=== PATIENT | male | born 1945 | race Caucasian/White ===

== ENCOUNTER → 2019-12-12 09:47 | Outpatient (BNVA) | payer MEDICARE, SELFPAY | PROVIDERS: Family Provider Family Medicine; PCP Family Medicine; Visit Provider Anesthesiology | DX: G89.29 Other chronic pain (principal); M54.41 Lumbago with sciatica, right side; M54.42 Lumbago with sciatica, left side; M54.9 Dorsalgia, unspecified; F17.220 Nicotine dependence, chewing tobacco, uncomplicated; Z79.891 Long term (current) use of opiate analgesic; Z71.6 Tobacco abuse counseling | CPT/HCPCS: 99213; 99214 ==

== ENCOUNTER 2019-12-29 10:25 | Outpatient (CLI) | payer MEDICARE, SELFPAY ==
--- NOTE | 2019-12-29 10:34 | XRR_ITS ---
PROCEDURE INFORMATION: Exam: XR Lumbosacral Spine, 2 or 3 Views Exam date and time: 12/29/2019 11:14 AM Age: 74 years old Clinical indication: Patient HX: C/O low back pain with radiculopathy; No known trauma; Additional info: Lumbar back pain w/radiculopathy TECHNIQUE: Imaging protocol: XR of the lumbosacral spine, 2 or 3 views. COMPARISON: CR Lumbar Spine 2-3 views* [id number] 05/19/2018 12:02 PM FINDINGS: Vertebrae: Degenerative change. Mild retrolisthesis of L1 on L2 and L2 on L3. No acute bony injury. Vasculature: Vascular calcification. Soft tissues: Unremarkable as visualized. When correlating with the previous study, no significant interval changes are present. XR/XR lumbar spine 2-3V* [id number] IMPRESSION: Degenerative change.
--- NOTE | 2019-12-29 10:34 | XRR_ITS ---
PROCEDURE INFORMATION: Exam: XR Chest, 2 Views Exam date and time: 12/29/2019 11:14 AM Age: 74 years old Clinical indication: Patient HX: C/O cough and low back pain TECHNIQUE: Imaging protocol: XR of the chest Views: 2 views. COMPARISON: No relevant prior studies available. FINDINGS: Lungs: Emphysematous change and mild interstitial prominence. No acute infiltrate. Pleural space: No pleural effusion. Heart/Mediastinum: Cardiac silhouette upper limits of normal in size. Vasculature: Ectasia of the thoracic aorta. Bones/joints: Degenerative change. XR/XR chest 2V* [id number] IMPRESSION: Emphysematous change and mild interstitial prominence.
== END 2019-12-29 10:26 | disposition home or self-care (01) ==
LOC: RAD 10:30
PROVIDERS: PCP Family Medicine; Visit Provider Family Medicine
DX: R05 Cough (principal); M54.16 Radiculopathy, lumbar region; J43.9 Emphysema, unspecified
CPT/HCPCS: 71046; 72100

== ENCOUNTER 2020-01-09 08:22 | Day surgery (SDC) | payer MEDICARE, SELFPAY ==
[2020-01-04 13:43] VITALS: BMI 31.4
[2020-01-09 09:21] VITALS: BP 136/90; PULSE 69; RESP 18; TEMP 37.1; O2SAT 97
[2020-01-09] MEDS: sodium chloride 0.9% 1,000 ML 30 ML IV (09:29)
--- NOTE | 2020-01-09 09:34 | P.ANESASSM_ITS ---
Pre-Anesthetic Assessment Pre-Anesthetic Assessment: Height/Weight: Height 1.8 m Weight 102.058 kg Temp Pulse Resp BP Pulse Ox 98.7 F 69 18 136/90 97 01/09/20 09:21 01/09/20 09:21 01/09/20 09:21 01/09/20 09:21 01/09/20 09:21 Preop Diagnosis: screening Proposed Procedure: Operation Date: 01/09/20 10:00 Proposed Procedures p Colonoscopy w poss polypectomy 34960 Z86.010(Not Applicable) - Germain Mendoza MD Familial anesthetic complications: none Was Beta Maria Luz taken within 24 ho urs: N/A Last intake: Intake Last Liquid Date 01/08/20 Last Liquid Time 19:00 Last Solid Date 01/07/20 Last Solid Time 19:00 Social: Social History: No alcohol and No tobacco Exam: Pre-Anes Outpt Exam: alert, oriented x 3, clear to auscultation bilaterally and regular rate & rhythm Airway: Cervical ROM: WNL MP: 3 Dentition: Partials Pulmonary: Pulmonary: None reported CV/HEM: CV/HEM: HTN : : None reported Hepatic: Hepatic: None reported GI: GI: None reported Metabolic: Metabolic: None reported Musc/skel: Musc/skel: Lower Back Pain Neuropsych: Neuropsych: None reported Anesthetic Plan: ASA status: 2 Anesthesia: MAC Risk of > 500 ml blood loss (7ml/kg in children): No Meds/Allergies Current Medications: Current Medications Generic Name Dose Route Start Last Admin Trade Name Freq PRN Reason Stop Dose Admin Sodium Chloride 1,000 mls @ 30 ml s/hr 01/09/20 09:00 01/09/20 09:29 Sodium Chloride 0.9% IV 01/10/20 08:59 30 mls/hr .Q24H KRISTEL Administration PFSH Anesthesia PFSH: Medical History (Updated 01/03/20 @ 12:33 by Mira Do RN) Chronic midline low back pain with bilateral sciatica Gout History of colon polyps HTN (hypertension), benign Surgical History H/O hemorrhoidectomy H/O prostate biopsy History of appendectomy History of colonoscopy with polypectomy (~2012) History of umbilical hernia repair Family History Other Diabetes Denies family history of Anesthesia complication Bleeding disorder Social History (Updated 01/04/20 @ 13:40 by Cassy Espino RN) Smoking and tobacco status: former smoker Alcohol intake: current Alcohol type: beer Data Anesthesia Cardiac Studies: No Data to Display
--- NOTE | 2020-01-09 10:35 | W.PM.OPSUD ---
Surgery/Procedure H&P Update DATE OF PROCEDURE: January 09, 2020 DATE H&P PERFORMED: 12/26/19 H&P UPDATE INFORMATION: I have reviewed H&P completed within last 30 days, I have examined patient prior to procedure and No changes to prior documentation PREOP DIAGNOSIS: screening PLANNED PROCEDURE: Operation Date: 01/09/20 10:00 Proposed Procedures p Colonoscopy w poss polypectomy 07356 Z86.010(Not Applicable) - Germain Mendoza MD
[2020-01-09 10:58] VITALS: BP 124/83; PULSE 57; RESP 12; TEMP 36.3
[2020-01-09 11:11] VITALS: BP 133/92; PULSE 68; RESP 18; O2SAT 95
== END 2020-01-09 11:21 | disposition home or self-care (01) ==
PROVIDERS: PCP Family Medicine; Visit Provider Surgery
PROC: 0DJD8ZZ Inspection of Lower Intestinal Tract, Via Natural or Artificial Opening Endoscopic (ICD-10-PCS; CPT 45378; principal; 2020-01-09 10:00)
DX: Z12.11 Encounter for screening for malignant neoplasm of colon (principal); Z86.010 Personal history of colon polyps; D12.0 Benign neoplasm of cecum; K57.30 Diverticulosis of large intestine without perforation or abscess without bleeding; K64.8 Other hemorrhoids; I10 Essential (primary) hypertension; Z87.891 Personal history of nicotine dependence; Z79.82 Long term (current) use of aspirin
CPT/HCPCS: 12345; 45380; 88305; J0171; J2704; J7030

== ENCOUNTER 2020-01-10 14:06 | Outpatient (CLI) | payer MEDICARE, SELFPAY ==
[2020-01-10 17:02] LABS: Basophils # 0.1 10^3/uL (0.0-0.1); Basophils % 0.7 %; Eosinophils # 0.3 10^3/uL (0.0-0.8); Eosinophils % 4.3 %; Hematocrit 42.9 % (42.0-52.0); Hemoglobin 14.3 g/dL (11.7-16.6); Lymphocytes # 2.6 10^3/uL (0.8-4.8); Lymphocytes % 37.4 %; Mean Corpuscular HGB Conc 33.3 g/dL (30.0-36.0); Mean Corpuscular Hemoglobin 30.7 pg (28.0-34.0); Mean Corpuscular Volume 92.1 fL (80-94); Monocytes # 0.5 10^3/uL (0.2-0.9); Monocytes % 7.7 %; Neutrophils # 3.46 10^3/uL (1.8-7.7); Neutrophils % 49.6 %; Nucleated Red Blood Cells % 0 %; Platelet Count 54 10^3/cmm (130-400); Red Blood Count 4.66 10^6/uL (4.1-5.3); Red Cell Distribution Width 13.7 % (12.1-15.1)
[2020-01-10 17:11] LABS: LAB Peripheral Smear Sent for Review
[2020-01-10 17:16] LABS: Alanine Aminotransferase 17 U/L (0-41); Albumin Level 4.4 g/dL (3.5-5.2); Alkaline Phosphatase 70 IU/L (40-130); Anion Gap 14.8 (5-19); Aspartate Amino Transferase 20 U/L (0-40); Blood Urea Nitrogen 13 mg/dL (8-23); Calcium 9.7 mg/dL (8.5-10.5); Carbon Dioxide 26 mmol/L (22-29); Chloride 103 mmol/L (98-107); Globulin 2.6 g/dL (1.3-4.6); Glucose 92 mg/dL (65-115); Lactate Dehydrogenase 183 U/L (135-225); Osmolality Calculated 286 mOsm/kg (285-295); Potassium 3.8 mmol/L (3.5-5.1); Sodium 140 mmol/L (136-145); Total Bilirubin 0.5 mg/dL (0.15-1.2)
[2020-01-10 17:54] LABS: Erythrocyte Sedimentation Rate 11 mm/hr (0-10)
[2020-01-10 18:21] LABS: Vitamin B12 588 pg/mL (232-1245)
--- NOTE | 2020-01-10 19:36 | ONC CON_ITS ---
Dr. Chand New Patient Note Patient: Tl Crandall Unit #: [id number]: 1945 Dicatated By: Velasquez Chand M.D.Date of Visit: Jan 10, 2020 Onc MED New Patient/Consult Referring Physician: Dr. KRISSY BLEDSOE M.D. Chief Complaint: Thrombocytopenia. History of Present Illness: This is a 74 year-old man with moderately severe thrombocytopenia. This patient has hypertension, benign prostatic hypertrophy, degenerative arthritis, and gout. He also has been followed for an elevated PSA level. He has been in good general health. He had been seen by Dr. Bledsoe for a scheduled follow-up visit on 12/28/2019. At that time he reported having easy bruising. His lab studies from 2 weeks earlier included a CBC which showed a low platelet count at 50,000. The hemoglobin at that time was normal at 14.9 g with hematocrit 44.8%. The red cell indices were normal. The white blood cell count was 6700 with the differential showing 46% neutrophils, 35% lymphocytes, 9% monocytes, and 7% eosinophils. His repeat CBC on 12/28/2019 showed similar hemoglobin at 14.9 g with white blood cell count 7300 and further decrease in the platelet count to 39,000. Comprehensive metabolic profile was unremarkable. Renal function was normal with BUN 20 and creatinine 1.15 mg/dL, and the liver enzymes were normal. Sed rate and CRP levels were normal. His PSA level was 8.0 ng/mL, similar to previous studies. He says he has been feeling fine. He has good energy. He has normal activity. He exercises daily. ECOG score is 0. He has good appetite. His weight is down about 5 pounds. He does not have fever or night sweats. His says that he always feels cold. He has noticed that he has been bruising more easily, and that has been going on for perhaps 6 months or so. He has had no other bleeding manifestations. He has a little bit of cough. He has no shortness of breath or chest pain. She has no GI complaints. He had a colonoscopy yesterday. He had no complications with that procedure. Bladder function has been OK with tamsulosin. He sees Dr. Lopez for the elevated PSA. He has chronic back pain. The pain sometimes radiates into his right leg. He has no focal neurologic symptoms. Past Medical History: His medical history includes benign prostatic hypertrophy, degenerative arthritis, degenerative disease of the spine, elevated PSA level, gout, history of colonic polyps, and hypertension. Past Surgical History: His surgical/procedural history includes appendectomy, excision of ganglion cyst, prostate biopsy x 2, right inguinal hernia repair, umbilical hernia repair, and colonoscopy in 2019. Medications: Adult Aspirin EC Low Strength 1 (81 mg) Tablet, enteric coated Oral daily, Allopurinol 1 Tablet (of 300 mg) Oral daily, amLODIPine Besylate 1 Tablet (of 5 mg) Oral daily, hydroCHLOROthiazide 1 Tablet (of 12.5 mg) Oral daily, Tamsulosin HCl 1 Tablet (of 0.4 mg) Capsule Oral b.i.d., traMADol HCl 1 Tablet (of 50 mg) Oral q 6 hours PRN Allergies: No Known Allergies. Social History: Mr. Crandall is and he is retired. He has a history of smoking for approximately 15 years, but not more than 2 packs per week. He quit smoking at age 33. He chews 2 cans of tobacco per month. His alcohol use averages a 6-pack of beer per week. Family History: Father at age 59 of alcohol related liver cirrhosis. Mother had diabetes and at age 90. All of his sibblings have diabetes. A son of Becerril's sarcoma at age 16. Review Of Symptoms: Constitutional - He is feeling good and his energy is good. He has normal activity. He swims daily for exercise. His appetite is good and he reports a recent weight loss of 5 pounds. No fever, night sweats, or hot flashes. His says that he always feels cold. ECOG score is 0, Eyes - No change in vision, ENMT - No hearing loss or tinnitus. No sinus congestion/drainage. No mouth sores. No sore throat or difficulty swallowing, Hematologic/Lymphatic - He has been bruising more easily. He has had no other bleeding, Respiratory - No shortness of breath. He has a slight cough. No pleuritic pain or hemoptysis, Cardiovascular - No angina pain. No palpitations, Gastrointestinal - No nausea or vomiting. No heartburn or acid reflux. No diarrhea or constipation. No blood in the stool or black stools. He had a colonoscopy performed yesterday, and he reports that he had some polyps resolved, Genitourinary (M) - He has been taking tamsulosin for BPH symptoms, and he has seen Dr. Lopez for an elevated PSA level. No dysuria or hematuria. No urinary frequency. No urgency or incontinence, Musculoskeletal - He has chronic back pain. This has been present for several years. It sometimes radiates into his right leg, Integumentary - No skin rash, Neurologic - No headache or dizziness. No numbness or tingling. No other focal neurologic symptoms, Psychiatric - No anxiety or depression. He does not sleep well. Vital Signs: Performed on Jan 10, 2020 15:20: 4, 33.50 (HIGH), 2.23 sq.m, 70 in, 97 %, 57 /min (LOW), 16 /min, 135/88 mm(hg), 98.0 F (LOW), and 233.5 lbs (HIGH). Physical Examination: Constitutional - He appears to be in good general health, Eyes - Sclerae nonicteric. Conjunctivae clear, ENMT - No lesions noted in the oral cavity, Neck - No mass or thyromegaly, Hematologic/Lymphatic - No cervical, clavicular, or axillary adenopathy, Respiratory - Lungs are clear with good air movement bilaterally, Cardiovascular - Heart rhythm is regular. There is a I/ systolic murmur. There is no gallop or rub noted, Abdomen - Soft and non-tender. Liver and spleen are not enlarged. There is no abdominal mass or ascites noted and there is no inguinal adenopathy, Back/Spine - No spine or CVA tenderness noted, Extremities - Slight edema. Pedal pulses are palpable bilaterally. There are ecchymoses at recent venipuncture sites. There are no petechiae noted, Integumentary - No rashes. No suspicious skin lesions noted, Neurologic - No focal neurologic deficits noted. Impression: 1. Patient with moderately severe thrombocytopenia. Etiology is uncertain. It could be medication related, though not likely. The more likely possibilities would be autoimmune thrombocytopenia or myelodyspastic syndrome. 2. He has a mild bleeding tendency. It is likely due in part to the aspirin therapy. His other medical illnesses include: 3. Hypertension. 4. Benign prostatic hypertrophy. 5. Degenerative arthritis/degenerative disease of the spine. 6. Gout. 7. He has been followed for elevated PSA level. 8. He has a history of colonic polyps. Plan: The laboratory findings and clinical implications were reviewed with the patient and his . He has moderately severe thrombocytopenia. He has a mild bleeding tendency with it, but at least some component of that is likely to be related to his aspirin therapy. The cause is uncertain. It is possible, though not likely to be medication related. As noted, the more likely possibilities would be autoimmune thrombocytopenia or myelodysplastic syndrome. At least for now he will stop the aspirin. As a precaution I think he should also stop the hydrochlorothiazide. He will addtional laboratory studies today to include CBC, CMP, LDH level, B12 level, sed rate and CRP level, and MICHEAL screen. I will review the blood smear. He will have further evaluation as indicated. I anticipate that he will need to undergo bone marrow aspiration and biopsy. Signed By: Velasquez Chand M.D. <<Signature on File>>
[2020-01-12 13:29] LABS: Anti-Nuclear Antibody Screen NEGATIVE (NEGATIVE)
== END 2020-01-10 14:07 | disposition home or self-care (01) ==
LOC: ONCMED 14:11
PROVIDERS: PCP Family Medicine; Visit Provider Internal Medicine Medical Oncology
DX: D69.6 Thrombocytopenia, unspecified (principal); M25.50 Pain in unspecified joint; D68.9 Coagulation defect, unspecified; I10 Essential (primary) hypertension; N40.0 Benign prostatic hyperplasia without lower urinary tract symptoms; M19.90 Unspecified osteoarthritis, unspecified site; M47.9 Spondylosis, unspecified; M10.9 Gout, unspecified; R97.20 Elevated prostate specific antigen [PSA]; Z79.82 Long term (current) use of aspirin; Z86.010 Personal history of colon polyps
CPT/HCPCS: 36415; 80053; 82607; 83615; 85025; 85651; 86038; 99205

== ENCOUNTER 2020-01-16 07:46 | Outpatient (CLI) | payer MEDICARE, SELFPAY ==
--- NOTE | 2020-01-16 07:58 | MR_ITS ---
WS: [id number] MRI LUMBAR SPINE NONCONTRAST TECHNIQUE: Sagittal T1, T2 and STIR imaging. Axial T1 and T2 imaging. CLINICAL INFORMATION: BACK PAIN, LUMBAR, WITH RADICULOPATHY COMPARISON: None. FINDINGS: Mild lumbar curve. No acute compression. No high-grade central canal stenosis. L1-L2: Small right foraminal protrusion with mild right foraminal narrowing. Spinal canal and foramen are patent. Mild facet arthropathy. L2-L3: Mild annular bulging with slight narrowing of the right greater than left subarticular recess. Mild right and no significant left foraminal narrowing. Mild to moderate facet arthropathy. L3-L4: Mild annular bulging. Mild facet arthropathy. Small right foraminal protrusion with mild right foraminal narrowing. L4-L5: Mild annular bulge with impingement on the right subarticular recess and traversing right L5 n erve root. Mild to moderate right and no significant left foraminal narrowing. Moderate facet arthrop athy. L5-S1: Mild disc bulging with slight effacement of ventral thecal sac. Shallow central protrusion. Ti ny annular fissure. Mild right and no significant left foraminal narrowing. Moderate facet arthropath y. Visualized pelvic bony structures: Normal. Paravertebral soft tissues: Normal. MR/MR lumbar spine wo con* [id number] IMPRESSION: 1. Mild lumbar curve. No acute compression. No high-grade central canal stenos is. 2. Mild disc bulging L4-5 with slight impingement on the right greater than le ft subarticular recess and traversing right L5 nerve root. Mild central canal s tenosis at this level. 3. Right foraminal protrusion L4-5 with mild to moderate right foraminal narro wing. 4. Tiny shallow central protrusion L5-S1 with slight effacement of the ventral thecal sac. No significant nerve root impingement. 5. Tiny right foraminal protrusion L3-4 with mild right foraminal narrowing. 6. Mild right L5-S1 foraminal narrowing due to disc bulging with osteophytic r idging. 7. Moderate facet arthropathy L4-L5 and L5-S1.
== END 2020-01-16 07:47 | disposition home or self-care (01) ==
PROVIDERS: Family Provider Family Medicine; PCP Family Medicine; Visit Provider Family Medicine
DX: M54.16 Radiculopathy, lumbar region (principal); M51.26 Other intervertebral disc displacement, lumbar region; M47.817 Spondylosis without myelopathy or radiculopathy, lumbosacral region
CPT/HCPCS: 72148

== ENCOUNTER → 2020-01-25 13:40 | Outpatient (BNVA) | payer MEDICARE, SELFPAY | PROVIDERS: Family Provider Family Medicine; PCP Family Medicine; Visit Provider Urology | DX: R97.20 Elevated prostate specific antigen [PSA] (principal); N40.1 Benign prostatic hyperplasia with lower urinary tract symptoms | CPT/HCPCS: 81001; 84153 ==

== ENCOUNTER 2020-01-26 09:36 | Outpatient (CLI) | payer MEDICARE, SELFPAY ==
[2020-01-26 10:17] LABS: Basophils # 0.1 10^3/uL (0.0-0.1); Basophils % 0.8 %; Eosinophils # 0.2 10^3/uL (0.0-0.8); Eosinophils % 2.9 %; Hemoglobin 14.2 g/dL (11.7-16.6); Lymphocytes # 2.2 10^3/uL (0.8-4.8); Lymphocytes % 35.5 %; Mean Corpuscular Hemoglobin 30.5 pg (28.0-34.0); Mean Corpuscular Volume 92.3 fL (80-94); Monocytes # 0.4 10^3/uL (0.2-0.9); Monocytes % 6.2 %; Neutrophils # 3.33 10^3/uL (1.8-7.7); Neutrophils % 54.4 %; Nucleated Red Blood Cells % 0 %; Platelet Count 58 10^3/cmm (130-400); Red Blood Count 4.66 10^6/uL (4.1-5.3); Red Cell Distribution Width 13.8 % (12.1-15.1); White Blood Count 6.1 10^3/uL (4.0-10.0)
[2020-01-26 11:36] LABS: Slide Review Slide Review Perform
== END 2020-01-26 09:37 | disposition home or self-care (01) ==
LOC: ONCMED 09:41
PROVIDERS: PCP Family Medicine; Visit Provider Internal Medicine Medical Oncology
DX: D69.6 Thrombocytopenia, unspecified (principal)
CPT/HCPCS: 85025

== ENCOUNTER 2020-02-08 09:46 | Day surgery (SDC) | payer MEDICARE, SELFPAY ==
[2020-02-07 08:25] VITALS: BMI 33.0
[2020-02-08 10:27] VITALS: BP 142/98; PULSE 69; RESP 20; TEMP 36.4; O2SAT 97
[2020-02-08] MEDS: sodium chloride 0.9% 1,000 ML 30 ML IV (10:35)
[2020-02-08 10:47] LABS: Hematocrit 46.1 % (42.0-52.0); Hemoglobin 15.2 g/dL (11.7-16.6); Mean Corpuscular Hemoglobin 30.5 pg (28.0-34.0); Mean Corpuscular Volume 92.4 fL (80-94); Mean Platelet Volume 13.7 fL (7.4-10.4); Platelet Count 76 10^3/cmm (130-400); Red Blood Count 4.99 10^6/uL (4.1-5.3); Red Cell Distribution Width 13.5 % (12.1-15.1)
--- NOTE | 2020-02-08 10:57 | ANES.PREANE2 ---
Pre-Anesthetic Assessment Pre-Anesthetic Assessment: Height/Weight: Height 1.78 m Weight 104.326 kg Temp Pulse Resp BP Pulse Ox 97.6 F 69 20 H 142/98 97 02/08/20 10:27 02/08/20 10:27 02/08/20 10:27 02/08/20 10:27 02/08/20 10:27 Preop Diagnosis: screening Proposed Procedure: Operation Date: 02/08/20 11:30 Proposed Procedures p Bone Marrow Biospy With Aspiration(Not Applicable) - Robles Diaz MD Last intake: Intake Last Liquid Date 02/07/20 Last Liquid Time 20:00 Last Solid Date 02/07/20 Last Solid Time 20:00 Social: Social History: Alcohol (occ) and Tobacco (chews) Exam: Pre-Anes Outpt Exam: alert, oriented x 3, clear to auscultation bilaterally and regular rate & rhythm Airway: Submandibular: WNL Cervical ROM: WNL MP: 2 Dentition: Other (poor dentation) History/ROS: No significant history except as noted Pulmonary: Pulmonary: None reported CV/HEM: CV/HEM: HTN : : None reported Hepatic: Hepatic: None reported GI: GI: None reported Metabolic: Comments: Gout Musc/skel: Musc/skel: Lower Back Pain and OA/DJD Neuropsych: Neuropsych: None reported Anesthetic Plan: ASA status: 2 Anesthesia: Anesthesia Evaluation and MAC Risk of > 500 ml blood loss (7ml/kg in children): No Meds/Allergies Current Medications: Current Medications Generic Name Dose Route Start Last Admin Trade Name Freq PRN Reason Stop Dose Admin Sodium Chloride 1,000 mls @ 30 ml s/hr 02/08/20 10:00 02/08/20 10:35 Sodium Chloride 0.9% IV 02/09/20 09:59 30 mls/hr .Q24H KRISTEL Administration PFSH Anesthesia PFSH: Medical History BPH NOS w ur obs/LUTS Chronic midline low back pain with bilateral sciatica Elevated PSA Gout History of colon polyps HTN (hypertension), benign Surgical History H/O hemorrhoidectomy H/O prostate biopsy History of appendectomy History of colonoscopy with polypectomy (01/09/20) History of umbilical hernia repair Family History Mother , at age 89 No problems noted. Father , at age 59 Cirrhosis of liver Other Diabetes Denies family history of Anesthesia complication Bleeding disorder Social History Smoking and tobacco status: former smoker Alcohol intake: current Alcohol type: beer Current occupational status: retired History of recent travel: No Data Anesthesia CBC & Chem 7: 02/08/20 10:35 Cardiac Studies: No Data to Display
[2020-02-08 11:10] LABS: Eosinophils 2 %; Lymphocytes 36 %; Segmented Neutrophils 51 %; Total Cells Counted 100 (0-100)
[2020-02-08 11:12] LABS: Platelet Estimate Decreased (Normal)
[2020-02-08 11:45] VITALS: BP 106/69; PULSE 63; RESP 12; TEMP 36.6; O2SAT 97
--- NOTE | 2020-02-08 11:46 | P.PCN_ITS ---
Bone Marrow Biopsy Bone Marrow Biopsy: I was consulted by [] office regarding bone marrow biopsy on [Tl Crandall]. Briefly, the patient is a 74[] year old male [] with [thrombocytopenia]. In the Outpatient Services Department, with nursing staff and laboratory technologists in attendance, the procedure was discussed with the patient. Appropriate consent form had been signed. Appropriate alternatives, benefits and risks of procedure were discussed with the patient and he was pre- operatively assessed for the biopsy procedure. The patient did request IV sedation and that was provided by the Anesthesia Department. Under aseptic condition right posterior iliac area was cleaned and prepared, local anesthesia was given, about 12 cc of bone marrow aspirate and core biopsy was obtained, patient tolerated procedure well, hemostasis was obtained specimen was sent for routine histo path, flow/cytogenetics, MDS panel. Postprocedure nursing instructions were given Thank you for allowing me to participate in this patient's care and diagnosis. Coding Level of Care Code Acute Meat Wrapper for Aliyah Brock
[2020-02-08 12:00] VITALS: BP 121/83; PULSE 58; RESP 16; TEMP 36.4; O2SAT 98
[2020-02-08 12:20] VITALS: BP 123/90; PULSE 58; RESP 16; TEMP 36.4; O2SAT 97
[2020-02-23 14:46] LABS: Miscellaneous Test See Scanned Lab Rpt
== END 2020-02-08 13:00 | disposition home or self-care (01) ==
LOC: GILAB 09:49
PROVIDERS: Internal Medicine Medical Oncology; PCP Family Medicine; Visit Provider Internal Medicine Hematology & Oncology
PROC: 07DT3ZX Extraction of Bone Marrow, Percutaneous Approach, Diagnostic (ICD-10-PCS; CPT 38222; principal; 2020-02-08 11:30)
DX: D69.6 Thrombocytopenia, unspecified (principal); I10 Essential (primary) hypertension; M19.90 Unspecified osteoarthritis, unspecified site; N40.1 Benign prostatic hyperplasia with lower urinary tract symptoms; N13.8 Other obstructive and reflux uropathy; Z87.891 Personal history of nicotine dependence
CPT/HCPCS: 12345; 38222; 85007; 85027; 85097; 88184; 88185; 88305; 88311; 88313; J7030

== ENCOUNTER 2020-04-04 13:50 | Outpatient (CLI) | payer MEDICARE, SELFPAY ==
[2020-04-04 14:54] LABS: Basophils # 0.1 10^3/uL (0.0-0.1); Basophils % 0.8 %; Eosinophils # 0.3 10^3/uL (0.0-0.8); Eosinophils % 4.6 %; Hematocrit 44.8 % (42.0-52.0); Hemoglobin 14.5 g/dL (11.7-16.6); Lymphocytes # 2.8 10^3/uL (0.8-4.8); Mean Corpuscular HGB Conc 32.4 g/dL (30.0-36.0); Mean Corpuscular Hemoglobin 29.8 pg (28.0-34.0); Mean Platelet Volume 13.9 fL (7.4-10.4); Monocytes # 0.5 10^3/uL (0.2-0.9); Monocytes % 6.5 %; Neutrophils # 3.55 10^3/uL (1.8-7.7); Nucleated Red Blood Cells % 0 %; Platelet Count 93 10^3/cmm (130-400); Red Blood Count 4.87 10^6/uL (4.1-5.3); Red Cell Distribution Width 13.5 % (12.1-15.1); White Blood Count 7.2 10^3/uL (4.0-10.0)
[2020-04-04 15:19] LABS: Alanine Aminotransferase 18 U/L (0-41); Albumin Level 4.4 g/dL (3.5-5.2); Alkaline Phosphatase 72 IU/L (40-130); Anion Gap 13.9 (5-19); Aspartate Amino Transferase 21 U/L (0-40); Blood Urea Nitrogen 17 mg/dL (8-23); Carbon Dioxide 25 mmol/L (22-29); Chloride 105 mmol/L (98-107); Globulin 2.7 g/dL (1.3-4.6); Glucose 132 mg/dL (65-115); Lactate Dehydrogenase 208 U/L (135-225); Osmolality Calculated 293 mOsm/kg (285-295); Potassium 3.9 mmol/L (3.5-5.1); Sodium 140 mmol/L (136-145); Total Bilirubin 0.4 mg/dL (0.15-1.2); Total Protein 7.1 g/dL (6.6-8.7)
[2020-04-04 15:28] LABS: Slide Review Slide Review Perform
--- NOTE | 2020-04-07 14:30 | ONC FU_ITS ---
Dr. Chand Patient Follow-Up Note Patient: Tl Crandall Unit #: [id number]: 1945 Dicatated By: Velasquez Chand M.D.Date of Visit:Apr 04, 2020 Onc Med Follow-up/Prog Note Chief Complaint: Thrombocytopenia. History of Present Illness: This is a 74 year-old man with moderately severe thrombocytopenia. This patient has hypertension, benign prostatic hypertrophy, degenerative arthritis, and gout. He also has been followed for an elevated PSA level. He has been in good general health. He had been seen by Dr. Escalante for a scheduled follow-up visit on 12/28/2019. At that time he reported having easy bruising. His lab studies from 2 weeks earlier included a CBC which showed a low platelet count at 50,000. The hemoglobin at that time was normal at 14.9 g with hematocrit 44.8%. The red cell indices were normal. The white blood cell count was 6700 with the differential showing 46% neutrophils, 35% lymphocytes, 9% monocytes, and 7% eosinophils. His repeat CBC on 12/28/2019 showed similar hemoglobin at 14.9 g with white blood cell count 7300 and further decrease in the platelet count to 39,000. Comprehensive metabolic profile was unremarkable. Renal function was normal with BUN 20 and creatinine 1.15 mg/dL, and the liver enzymes were normal. Sed rate and CRP levels were normal. His PSA level was 8.0 ng/mL, similar to previous studies. I had seen him initially on 01/10/2020. At that point his platelet count had decreased to 54,000. Hemoglobin was still normal at 14.3 g with white blood cell count normal at 7000. Comprehensive metabolic profile was unremarkable. Sed rate was normal at 11 mm/hour. MICHEAL screen was negative. B12 was normal at 588 pg/mL. He underwent bone marrow aspiration/biopsy on 02/08/2020. The marrow was mildly hypercellular, ranging from 30 to 50%. There was mild megakaryocytic hyperplasia noted, but there were no overt dysplastic changes and there was no evidence of an infiltrative process. Iron stores were noted to be mildly increased. The flow cytometry was unrevealing. The chromosome analysis was normal, and the FISH panel for MDS also was unrevealing. He is seen for a follow-up visit. He says he is feeling fine. He has good energy, and he has normal activity. ECOG score is 0. His appetite has been good. He has no fever or night sweats. His main complaint is that he has been having pain in his lower back, more on the right side. The pain radiates down the right leg. He was evaluated and apparently declined for an injection because of his low platelet count. He has no other significant complaints at this time. In particular, he is not having easy bruising or other bleeding manifestations. Medications: Allopurinol 1 Tablet (of 300 mg) Oral daily, amLODIPine Besylate 1 Tablet (of 5 mg) Oral daily, Tamsulosin HCl 1 Tablet (of 0.4 mg) Capsule Oral b.i.d., traMADol HCl 1 Tablet (of 50 mg) Oral q 6 hours PRN Allergies: No Known Allergies. Review of Systems: Constitutional - He has been feeling fine. He has good energy and he has normal activity. Appetite is good and weight is stable. No fever, night sweats, or hot flashes. ECOG score is 0, ENMT - No sinus congestion/drainage. No mouth sores. No sore throat or difficulty swallowing, Hematologic/Lymphatic - He was having more bruising, but that seems to have resolved, Respiratory - No shortness of breath. No cough. No pleuritic pain or hemoptysis, Cardiovascular - No angina pain. No palpitations, Gastrointestinal - No nausea or vomiting. No heartburn or acid reflux. No diarrhea or constipation. No blood in the stool or black stools, Genitourinary (M) - His urination tends to be slow in the morning. No dysuria or hematuria. No urinary frequency. No urgency or incontinence, Musculoskeletal - Since October he has been having pain in his lower back, mainly on the right side. It radiates down the right leg, Integumentary - , Neurologic - No headache. He occasionally has dizziness. No numbness or tingling. No other focal neurologic symptoms, Psychiatric - No anxiety or depression. No insomnia. Vital Signs: Performed on Apr 04, 2020 15:57 Height - 70.00 in Weight - 235.6 lbs (HIGH) BSA - 2.24 sq.m BMI - 33.81 (HIGH) Temperature - 98.5 F Pulse - 66 /min Respiration - 18 /min BP - 141/93 mm(hg) (HIGH) O2 Sat - 97 % Pain - 5 Physical Examination: Constitutional - He looks good generally, Eyes - Sclerae nonicteric. Conjunctivae clear, ENMT - No lesions noted in the oral cavity, Hematologic/Lymphatic - No cervical, clavicular, or axillary adenopathy, Respiratory - Lungs are clear with good air movement bilaterally, Cardiovascular - Heart rhythm is irregular. There is a I/ systolic murmur. There is no gallop or rub noted, Abdomen - Soft and non-tender. Liver and spleen are not enlarged. There is no abdominal mass or ascites noted and there is no inguinal adenopathy, Extremities - Slight edema. There are no petechiae or ecchymoses noted, Neurologic - No focal neurologic deficits noted. Lab/Imaging: Test performed on Apr 04, 2020 14:00 LDH (Total) 208 U/L Sodium 140 mmol/L Potassium 3.9 mmol/L Chloride 105 mmol/L CO2 25 mmol/L Anion Gap 13.9 BUN 17 mg/dL Creatinine 1.1 mg/dL Cr Clearance (Est) 90.41 mL/min Glucose 132 mg/dL Osmolality - Calculated 293 mOsm/kg Calcium 9.0 mg/dL Protein, Total 7.1 g/dL Albumin 4.4 g/dL Globulin 2.7 g/dL Bilirubin, Total 0.4 mg/dL ALT (SGPT) 18 U/L AST (SGOT) 21 U/L Alkaline Phosphatase 72 IU/L WBC 7.2 10 3/uL RBC 4.87 10 6/uL HGB 14.5 g/dL HCT 44.8 % MCV 92.0 fL MCH 29.8 pg MCHC 32.4 g/dL RDW 13.5 % Platelet Count 93 10 3/cmm MPV 13.9 fL Neutrophils 3.55 10 3/uL Lymphocytes 2.8 10 3/uL Monocytes 0.5 10 3/uL Eosinophils 0.3 10 3/uL Basophils 0.1 10 3/uL Neutrophil % 49.0 % Lymphocyte % 39.0 % Monocyte % 6.5 % Eosinophil % 4.6 % Basophils % 0.8 % NRBC % 0 % CBC Slide Review Slide Review Perform SLIDE REVIEW AGREES WITH AUTOMATED RESULT Impression: 1. Patient with mild to moderately severe thrombocytopenia. His bone marrow aspiration/biopsy on 02/08/2020 showed no diagnostic findings. 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 Myelodysplastic syndrome, though, cannot be entirely excluded. 2. He appeared to have a mild bleeding tendency by clinical evaluation, but that has improved since he stopped aspirin. His other medical illnesses include: 3. Hypertension. 4. Benign prostatic hypertrophy. 5. Degenerative arthritis/degenerative disease of the spine. 6. Gout. 7. He has been followed for elevated PSA level. 8. He has a history of colonic polyps. Plan: As long as his platelet count remains adequate and he has no clinical evidence of bleeding tendency, he can be followed on observation/expectant management. With this degree of thrombocytopenia, there should be no contraindication to undergoing injections for his back pain. At this point he will continue his regular follow-up with Dr. Escalante. I would recommend checking blood counts at least every 6 months. I will see him again as needed. Signed By: Velasquez Chand M.D. <<Signature on File>>
== END 2020-04-04 13:51 | disposition home or self-care (01) ==
LOC: ONCMED 13:53
PROVIDERS: PCP Family Medicine; Visit Provider Internal Medicine Medical Oncology
DX: D69.6 Thrombocytopenia, unspecified (principal); I10 Essential (primary) hypertension; N40.0 Benign prostatic hyperplasia without lower urinary tract symptoms; M47.9 Spondylosis, unspecified; M10.9 Gout, unspecified; R97.20 Elevated prostate specific antigen [PSA]; Z86.010 Personal history of colon polyps
CPT/HCPCS: 36415; 80053; 83615; 85025; 99214

== ENCOUNTER → 2020-04-30 13:29 | Outpatient (BNVA) | payer MEDICARE, SELFPAY | PROVIDERS: PCP Family Medicine; Visit Provider Anesthesiology | DX: G89.29 Other chronic pain (principal); M54.41 Lumbago with sciatica, right side; M54.42 Lumbago with sciatica, left side; F17.220 Nicotine dependence, chewing tobacco, uncomplicated; Z79.891 Long term (current) use of opiate analgesic | CPT/HCPCS: 99213 ==

== ENCOUNTER → 2020-05-16 09:13 | Outpatient (BNVA) | payer MEDICARE, SELFPAY | PROVIDERS: PCP Family Medicine; Visit Provider Anesthesiology | DX: G89.29 Other chronic pain (principal); M54.41 Lumbago with sciatica, right side; M54.42 Lumbago with sciatica, left side; F17.220 Nicotine dependence, chewing tobacco, uncomplicated; Z79.891 Long term (current) use of opiate analgesic | CPT/HCPCS: 62323; J1040; J3490 ==

== ENCOUNTER → 2020-09-18 13:52 | Outpatient (BNVA) | payer MEDICARE, SELFPAY | PROVIDERS: PCP Family Medicine; Visit Provider Anesthesiology | DX: G89.29 Other chronic pain (principal); M54.41 Lumbago with sciatica, right side; M54.42 Lumbago with sciatica, left side; F17.220 Nicotine dependence, chewing tobacco, uncomplicated; Z79.891 Long term (current) use of opiate analgesic | CPT/HCPCS: 99213 ==

== ENCOUNTER → 2020-10-31 08:18 | Outpatient (BNVA) | payer MEDICARE, SELFPAY | PROVIDERS: PCP Family Medicine; Visit Provider Anesthesiology | DX: G89.29 Other chronic pain (principal); M54.41 Lumbago with sciatica, right side; M54.42 Lumbago with sciatica, left side; F17.210 Nicotine dependence, cigarettes, uncomplicated; Z79.891 Long term (current) use of opiate analgesic; M54.9 Dorsalgia, unspecified | CPT/HCPCS: 62323; J1040; J3490 ==

== ENCOUNTER 2020-11-06 08:51 | Outpatient (CLI) | payer MEDICARE, SELFPAY ==
[2020-11-06 09:31] LABS: Basophils % 0.5 %; Eosinophils # 0.1 10^3/uL (0.0-0.8); Eosinophils % 0.7 %; Hematocrit 44.6 % (42.0-52.0); Hemoglobin 14.8 g/dL (11.7-16.6); Lymphocytes % 36.8 %; Mean Corpuscular HGB Conc 33.2 g/dL (30.0-36.0); Mean Corpuscular Volume 90.3 fL (80-94); Mean Platelet Volume 11.7 fL (7.4-10.4); Monocytes # 0.7 10^3/uL (0.2-0.9); Neutrophils # 4.37 10^3/uL (1.8-7.7); Neutrophils % 53.6 %; Nucleated Red Blood Cells % 0 %; Platelet Count 160 10^3/cmm (130-400); Red Blood Count 4.94 10^6/uL (4.1-5.3); Red Cell Distribution Width 13.6 % (12.1-15.1); White Blood Count 8.2 10^3/uL (4.0-10.0)
[2020-11-06 09:42] LABS: Alanine Aminotransferase 15 U/L (0-41); Albumin Level 4.2 g/dL (3.5-5.2); Alkaline Phosphatase 66 IU/L (40-130); Anion Gap 10.9 (5-19); Aspartate Amino Transferase 13 U/L (0-40); Blood Urea Nitrogen 17 mg/dL (8-23); Calcium 8.9 mg/dL (8.5-10.5); Carbon Dioxide 28 mmol/L (22-29); Chloride 104 mmol/L (98-107); Globulin 2.6 g/dL (1.3-4.6); Glucose 86 mg/dL (65-115); Lactate Dehydrogenase 144 U/L (135-225); Osmolality Calculated 289 mOsm/kg (285-295); Potassium 3.9 mmol/L (3.5-5.1); Sodium 139 mmol/L (136-145); Total Bilirubin 0.5 mg/dL (0.15-1.2); Total Protein 6.8 g/dL (6.6-8.7)
== END 2020-11-06 08:52 | disposition home or self-care (01) ==
LOC: ONCMED 08:55
PROVIDERS: PCP Family Medicine; Visit Provider Internal Medicine Medical Oncology
DX: D69.6 Thrombocytopenia, unspecified (principal)
CPT/HCPCS: 36415; 80053; 83615; 85025

== ENCOUNTER → 2020-11-19 07:56 | Outpatient (BNVA) | payer MEDICARE, SELFPAY | PROVIDERS: PCP Family Medicine; Visit Provider Anesthesiology | DX: G89.29 Other chronic pain (principal); M54.41 Lumbago with sciatica, right side; M54.42 Lumbago with sciatica, left side; F17.220 Nicotine dependence, chewing tobacco, uncomplicated; Z79.891 Long term (current) use of opiate analgesic | CPT/HCPCS: 99212; 99213 ==

== ENCOUNTER → 2021-01-28 12:49 | Outpatient (BNVA) | payer MEDICARE, SELFPAY | PROVIDERS: PCP Family Medicine; Visit Provider Urology | DX: N40.1 Benign prostatic hyperplasia with lower urinary tract symptoms (principal); R97.20 Elevated prostate specific antigen [PSA] | CPT/HCPCS: 81003; 84153 ==

== ENCOUNTER → 2021-02-04 09:27 | Outpatient (BNVA) | payer MEDICARE, SELFPAY | PROVIDERS: PCP Family Medicine; Referring Provider Family Medicine; Visit Provider Orthopaedic Surgery | DX: M54.5 Low back pain (principal) | CPT/HCPCS: 72110 ==

== ENCOUNTER → 2021-02-14 11:51 | Day surgery (SDC) | payer MEDICARE, SELFPAY | PROVIDERS: PCP Family Medicine; Visit Provider Orthopaedic Surgery | DX: Z01.818 Encounter for other preprocedural examination (principal); M54.41 Lumbago with sciatica, right side; M54.42 Lumbago with sciatica, left side; G89.29 Other chronic pain | CPT/HCPCS: 93005 ==

== ENCOUNTER → 2021-02-17 12:11 | Outpatient (BNVA) | payer MEDICARE, SELFPAY | PROVIDERS: PCP Family Medicine; Visit Provider Orthopaedic Surgery | DX: Z01.812 Encounter for preprocedural laboratory examination (principal); Z20.822 Contact with and (suspected) exposure to COVID-19 | CPT/HCPCS: 87635 ==

== ENCOUNTER 2021-02-21 05:50 | Day surgery (SDC) | payer MEDICARE, SELFPAY ==
[2021-02-14 11:39] VITALS: BMI 34.4
--- NOTE | 2021-02-14 11:51 | ECG_ITS ---
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: : 1945 Requested By: Paulo Singletary Order Number: [id number] Oswaldo MD: ANASTASIA FREEMAN Measurements Intervals [place] Rate: 55 P: 35 AK: 243 QRS: -30 QRSD: 121 T: 29 QT: 416 QTc: 399 Interpretive Statements SINUS BRADYCARDIA WITH FIRST DEGREE AV BLOCK BORDERLINE LEFT AXIS DEVIATION [QRS AXIS < -20] MODERATE INTRAVENTRICULAR CONDUCTION DELAY [110+ ms QRS DURATION] Compared to ECG 07/18/2018 11:40:10 First degree AV block now present Sinus rhythm no longer present Sinus arrhythmia no longer present Electronically Signed On 02-14-2021 19:27:34 CDT by ANASTASIA FREEMAN [id number]
--- NOTE | 2021-02-14 13:36 | ANES.PREANE2 ---
Pre-Anesthetic Assessment Pre-Anesthetic Assessment: Height/Weight: Height 1.78 m Weight 108.862 kg Preop Diagnosis: screening Proposed Procedure: Operation Date: 02/21/21 07:00 Proposed Procedures p MIS decompression L4/5 56742 M48.062(Not Applicable) - Kory Villanueva DO Was Beta Maria Luz taken within 24 hours: N/A Was Clonidine taken within 24 hours: N/A Social: Social History: Tobacco (Chews) and No alcohol Exam: Pre-Anes Outpt Exam: alert, oriented x 3, clear to auscultation bilaterally and regular rate & rhythm Airway: Submandibular: WNL Cervical ROM: WNL Dentition: Partials CV/HEM: CV/HEM: HTN Metabolic: Metabolic: Morbid obesity Musc/skel: Musc/skel: Lower Back Pain Anesthetic Plan: ASA status: 3 Anesthesia: General Risk of > 500 ml blood loss (7ml/kg in children): No PFSH Anesthesia PFSH: Medical History (Updated 02/04/21 @ 10:22 by Kory Villanueva DO) BPH NOS w ur obs/LUTS Chronic midline low back pain with bilateral sciatica Elevated PSA Encounter for long-term opiate analgesic use Gout History of colon polyps HTN (hypertension), benign Opioid use agreement exists Surgical History (Updated 02/14/21 @ 11:39 by Loida Ruffin) H/O hemorrhoidectomy H/O prostate biopsy History of appendectomy History of colonoscopy with polypectomy (01/09/20) History of umbilical hernia repair Family History Mother , at age 89 No problems noted. Father , at age 59 Cirrhosis of liver Other Diabetes Denies family history of Anesthesia complication Bleeding disorder Social History Alcohol intake: current Alcohol type: beer Current occupational status: retired History of recent travel: No Data Anesthesia Cardiac Studies: No Data to Display
[2021-02-21] VITALS (11 sets, daily range): BP systolic 110–174; BP diastolic 73–98; PULSE 48–77; RESP 16–19; TEMP 36.1–36.6; O2SAT 93–98
--- NOTE | 2021-02-21 | XR_ITS ---
WS: [id number] Lumbar spine, C-arm fluoroscopy, 02/21/2021 Clinical Data: decompression L4/L5 Comparison: Lumbar spine, 02/04/2021. Findings: Dr. Villanueva performed an L4-L5 decompression. XR/XR lumbar spine 1V port [id number] Impression: L4-L5 decompression.
--- NOTE | 2021-02-21 | SCC_ITS ---
Procedure Done: right L4/5 laminectomy with partial factectomy 7.8 seconds of fluoroscopic guidance, for a cumulative dose of 2.58 mGy, was provided to Dr. Villanueva by the radiology department. C-arm images of the lumbar spine were saved for the patient's permanent record. [facility]
[2021-02-21] MEDS: sodium chloride 0.9% 1,000 ML 30 ML IV (06:29)
--- NOTE | 2021-02-21 06:41 | P.ANESUD_ITS ---
Pre-Anesthetic Update Pre-Anesthetic Assessment: Date of Surgery/Procedure: 02/21/21 Preop Danay gnosis: screening Proposed Procedure: Operation Date: 02/21/21 07:00 Proposed Procedures p MIS decompression L4/5 93406 M48.062(Not Applicable) - Kory Villanueva, DO Any changes to Pre-Anesthetic Assessment?: No Last Intake: Intake Last Liquid Date 02/20/21 Last Liquid Time 21:00 Last Solid Date 02/20/21 Last Solid Time 17:00 Vitals: Temperature 97.8 F 02/21/21 06:03 Pulse Rate 60 02/21/21 06:03 Respiratory Rate 18 02/21/21 06:03 Blood Pressure 151/98 02/21/21 06:03 Blood Pressure Nupur n 115 02/21/21 06:03 Pulse Oximetry 94 02/21/21 06:03 Oxygen Delivery Me thod 02/21/21 06:04 Exam: Pre-Anes Outpt Exam: alert, oriented x 3, clear to auscultation bilaterally and regular rate & rhythm Cardiac Studies: No Data to Display
--- NOTE | 2021-02-21 06:59 | W.PM.OPSUD ---
Surgery/Procedure H&P Update DATE OF PROCEDURE: February 21, 2021 DATE H&P PERFORMED: 02/04/21 H&P UPDATE INFORMATION: I have reviewed H&P completed within last 30 days, I have examined patient prior to procedure and No changes to prior documentation PREOP DIAGNOSIS: screening PLANNED PROCEDURE: Operation Date: 02/21/21 07:00 Proposed Procedures p MIS decompression L4/5 08810 M48.062(Not Applicable) - Kory Villanueva DO
--- NOTE | 2021-02-21 08:24 | PM.OP ---
Operative Report Date of procedure: February 21, 2021 Pre-op Diagnosis: lumbar stenosis Post-op diagnosis: same Procedure Done: right L4/5 laminectomy with partial factectomy Surgeon: Kory Villanueva Anesthesia: General Estimated blood loss (mL): 5 Condition: stable Disposition: PACU Procedure: right L4/5 laminectomy with partial factectectomy Patient is brought to the operative suite. After undergoing anesthesia they are placed in the supine position. All areas of impingement are well padded. Patient is then prepped and draped in the normal sterile fashion. A skin incision is made over the L4/5 level. This is confirmed under c-arm guidance. A series of dilators are passed and the tubular retractor is docked on the L4 lamina. A bovie is used to clear the soft tissue off the lamina and the L 4/5 facet joint. A high speed trini is then used to perform the laminectomy and take down the medial aspect of the L 4/5 facet joint. A kerrison rongeure was then used to take down the remaining lamina and smooth the edge of the laminectomy up to the point where the ligamentum flavum attaches. Attention was then brought to the medial aspect of the facet joint. The remaining medial aspect of the superior and inferior aspect of the facet joint were taken down with the kerrison from the pedicle of L4 to L 5. The facet joint had significant hypertrophy. Attention was then brought to the Ligamentum Flavum. The ligament was taken down from the lamina of L4 to L5 and out medially to the remaining facet joint. The ligament was thick. The dura was then exposed. The dura was in good repair. The L4 nerve was then traced with a curette out the L4/5 foramen and found to be adequately decompressed. The L5 nerve was traced with a curette around the L5 pedicle. The lateral recess was opened with a kerrison helping to further decompress the L5 nerve. Wound is then irrigated copiously with saline and surgiflo is used to stop any bleeding. The tubular retractor is removed and the wound is closed with vicryl and monocryl suture. Glue is then used to protect the wound. A sterile dressing is then placed. Patient was then placed in the supine position and transferred to the PACU in stable condition.
[2021-02-21] MEDS: fentaNYL 50 mcg/mL INJ 2mL IVP ×2 (08:48→08:53)
--- NOTE | 2021-02-21 18:24 | ANE.PACU2 ---
Inpatient post-anesthesia follow up: Airway intact: Yes Vital signs: Temperature 97.0 F Pulse Rate 48 Respiratory Rate 18 Blood Pressure 110/77 Pulse Oximetry 93 Oxygen Delivery Me thod Room Air Oxygen Flow Rate 8 Fraction of Inspir ed Oxygen Hydration adequate: Yes Nausea and vomiting: No Pain level: 2 Mental status: Baseline
== END 2021-02-21 09:45 | disposition home or self-care (01) ==
PROVIDERS: PCP Family Medicine; Visit Provider Orthopaedic Surgery
PROC: (CPT 63005; principal; 2021-02-21 07:00)
DX: M48.061 Spinal stenosis, lumbar region without neurogenic claudication (principal); F17.220 Nicotine dependence, chewing tobacco, uncomplicated; I10 Essential (primary) hypertension; E66.01 Morbid (severe) obesity due to excess calories; Z68.34 Body mass index [BMI] 34.0-34.9, adult; N40.1 Benign prostatic hyperplasia with lower urinary tract symptoms; N13.8 Other obstructive and reflux uropathy
CPT/HCPCS: 63047; 72020; 76000; 96365; J0690; J1100; J2405; J2710; J3010; J3490; J7030

== ENCOUNTER 2021-07-15 11:43 | Outpatient (CLI) | payer MEDICARE, SELFPAY ==
--- NOTE | 2021-07-15 11:50 | XR_ITS ---
WS: [id number] XR thoracolumbar junct [id number] REASON FOR EXAM: THORACIC RADICULOPATHY FINDINGS: AP and lateral views of the lower thoracic and upper lumbar spine. Moderate kyphosis at the thoracolu mbar junction. Mild rotatory scoliosis of the upper lumbar and lower thoracic spine convex right. There is significant narrowing of the intervertebral disc spaces in the lower thoracic spine with lar ge marginal osteophytes with bridging at T10-T11 and T11-T12. No compression deformity or other focal vertebral body abnormality. 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
== END 2021-07-15 11:44 | disposition home or self-care (01) ==
PROVIDERS: PCP Family Medicine; Visit Provider Family Medicine
DX: M54.14 Radiculopathy, thoracic region (principal); M47.815 Spondylosis without myelopathy or radiculopathy, thoracolumbar region
CPT/HCPCS: 72080

== ENCOUNTER → 2022-01-23 08:20 | Outpatient (BNVA) | payer MEDICARE, SELFPAY | PROVIDERS: PCP Family Medicine; Visit Provider Urology | DX: N40.1 Benign prostatic hyperplasia with lower urinary tract symptoms (principal); R97.20 Elevated prostate specific antigen [PSA] | CPT/HCPCS: 99213 ==

== ENCOUNTER 2022-01-23 09:07 | Outpatient (CLI) | payer MEDICARE, SELFPAY ==
[2022-01-23 10:29] LABS: Prostate Specific AG Urology 9.16 ng/mL (0-4)
== END 2022-01-23 09:08 | disposition home or self-care (01) ==
LOC: LAB 09:10
PROVIDERS: PCP Family Medicine; Visit Provider Urology
DX: R97.20 Elevated prostate specific antigen [PSA] (principal); N40.1 Benign prostatic hyperplasia with lower urinary tract symptoms
CPT/HCPCS: 36415; 81003; 84153; 99213

== ENCOUNTER → 2022-04-17 07:56 | Outpatient (BNVA) | payer MEDICARE, SELFPAY | PROVIDERS: PCP Family Medicine; Visit Provider Family Medicine | DX: Z51.81 Encounter for therapeutic drug level monitoring (principal); R25.2 Cramp and spasm; R73.09 Other abnormal glucose | CPT/HCPCS: 80053; 83036; 83735; 85025 ==

== ENCOUNTER → 2022-06-04 14:52 | Outpatient (BNVA) | payer MEDICARE, SELFPAY | PROVIDERS: PCP Family Medicine; Visit Provider Physician Assistant | DX: M48.062 Spinal stenosis, lumbar region with neurogenic claudication (principal); M47.816 Spondylosis without myelopathy or radiculopathy, lumbar region; Z98.890 Other specified postprocedural states | CPT/HCPCS: 72100; 99213 ==

== ENCOUNTER 2022-06-23 07:34 | Outpatient (CLI) | payer MEDICARE, SELFPAY ==
--- NOTE | 2022-06-23 08:00 | MR_ITS ---
WS: [id number] MRI LUMBAR SPINE NONCONTRAST TECHNIQUE: Sagittal T1, T2 and STIR imaging. Axial T1 and T2 imaging. CLINICAL INFORMATION: pain COMPARISON: MRI January 16, 2020 FINDINGS: Mild lumbar curve. No acute compression. No high-grade central canal stenosis. RIGHT L4-L5 hemilamine ctomy is new from previous. L1-L2: Mild annular bulging with slight effacement of ventral thecal sac. Small RIGHT foraminal protr usion with mild RIGHT foraminal narrowing. LEFT foramen is patent. Mild facet arthropathy. L2-L3: Mild annular bulging with mild central canal stenosis. Slight impingement traversing L3 nerve roots bilaterally. Mild facet arthropathy. Mild LEFT foraminal narrowing. L3-L4: Mild annular bulging. Slight impingement subarticular recess bilaterally. Mild central canal s tenosis. Small LEFT foraminal protrusion. Mild bilateral foraminal narrowing. L4-L5: Mild disc bulging and osteophytic ridging. Impingement traversing L5 nerve roots bilaterally. Mild facet arthropathy. Mild RIGHT greater than LEFT foraminal narrowing. Postoperative changes prior RIGHT hemilaminectomy. L5-S1: Mild annular bulging with a tiny central protrusion. Slight effacement of ventral thecal sac. Mild RIGHT and no significant LEFT foraminal narrowing. Mild facet arthropathy. Visualized pelvic bony structures: Normal. Paravertebral soft tissues: Normal. MR/MR lumbar spine wo con* [id number] IMPRESSION: 1. Mild lumbar curve. No acute compression. No high-grade central canal stenos is. 2. Prior postoperative changes RIGHT hemilaminectomy L4-L5. Residual narrowing of the subarticular recess bilaterally. Central canal stenosis is improved. Mi ld RIGHT greater than LEFT foraminal narrowing. Small RIGHT foraminal protrusio n. 3. Mild central canal stenosis L2-L3 and L3-L4 slightly progressed compared to previous. 4. No other significant changes compared to previous. 5. Tiny central protrusion L5-S1 slightly contacts the traversing RIGHT greate r than LEFT S1 nerve roots. Mild RIGHT L5-S1 foraminal narrowing. 6. Tiny RIGHT foraminal protrusion L1-L2 slightly contacts the exiting RIGHT L 1 L1 nerve root. 7. Small LEFT foraminal protrusion L3-L4 slightly contacts the exiting LEFT L3 nerve root.
== END 2022-06-23 07:35 | disposition home or self-care (01) ==
LOC: RAD 07:36
PROVIDERS: PCP Family Medicine; Visit Provider Physician Assistant
DX: M51.26 Other intervertebral disc displacement, lumbar region (principal); M51.27 Other intervertebral disc displacement, lumbosacral region; M48.061 Spinal stenosis, lumbar region without neurogenic claudication
CPT/HCPCS: 72148

== ENCOUNTER → 2022-07-09 08:01 | Outpatient (BNVA) | payer MEDICARE, SELFPAY | PROVIDERS: PCP Family Medicine; Visit Provider Physician Assistant | DX: M54.41 Lumbago with sciatica, right side (principal); M54.42 Lumbago with sciatica, left side; G89.29 Other chronic pain | CPT/HCPCS: 99213 ==

== ENCOUNTER → 2022-08-18 07:59 | Outpatient (BNVA) | payer MEDICARE, SELFPAY | PROVIDERS: PCP Family Medicine; Visit Provider Physician Assistant | DX: M54.41 Lumbago with sciatica, right side (principal); M54.42 Lumbago with sciatica, left side; G89.29 Other chronic pain | CPT/HCPCS: 99213 ==

== ENCOUNTER → 2022-10-13 12:57 | Outpatient (BNVA) | payer MEDICARE, SELFPAY | PROVIDERS: PCP Family Medicine; Visit Provider Urology | DX: N40.1 Benign prostatic hyperplasia with lower urinary tract symptoms (principal); R33.8 Other retention of urine | CPT/HCPCS: 52000; 99214 ==

== ENCOUNTER → 2022-10-16 07:31 | Outpatient (BNVA) | payer MEDICARE, SELFPAY | PROVIDERS: PCP Family Medicine; Visit Provider Family Medicine | DX: Z13.220 Encounter for screening for lipoid disorders (principal); R73.03 Prediabetes; Z51.81 Encounter for therapeutic drug level monitoring | CPT/HCPCS: 80053; 80061; 83036; 85025 ==

== ENCOUNTER → 2022-11-05 13:05 | Outpatient (BNVA) | payer MEDICARE, SELFPAY | PROVIDERS: PCP Family Medicine; Visit Provider Surgery | DX: K42.9 Umbilical hernia without obstruction or gangrene (principal) | CPT/HCPCS: 99203; 99214 ==

== ENCOUNTER → 2022-12-08 14:33 | Outpatient (BNVA) | payer MEDICARE, SELFPAY | PROVIDERS: PCP Family Medicine; Visit Provider Urology | DX: N40.1 Benign prostatic hyperplasia with lower urinary tract symptoms (principal); N13.8 Other obstructive and reflux uropathy; R33.8 Other retention of urine; Z90.49 Acquired absence of other specified parts of digestive tract | CPT/HCPCS: 51741; 51798; 81003; 99213 ==

== ENCOUNTER 2022-12-10 07:47 | Day surgery (SDC) | payer MEDICARE, SELFPAY ==
[2022-12-08 11:01] VITALS: BMI 33.5
[2022-12-10] VITALS (14 sets, daily range): BP systolic 123–156; BP diastolic 73–98; PULSE 50–62; RESP 14–18; TEMP 36.2–36.4; O2SAT 88–100
[2022-12-10] MEDS: sodium chloride 0.9% 1,000 ML 30 ML IV (08:18)
--- NOTE | 2022-12-10 08:28 | ANES.PREANE2 ---
Pre-Anesthetic Assessment Height/Weight: Height 1.78 m Weight 106.141 kg Temp Pulse Resp BP Pulse Ox O2 Del Method 97.6 F 56 L 16 142/90 97 Room Air 12/10/22 08:00 12/10/22 08:00 12/10/22 08:00 12/10/22 08:00 12/10/22 08:00 12/10/22 08:01 Operation Date: 12/10/22 09:30 Proposed Procedures p 79876 lap umbilical hernia repair with mesh K42.9(Not Applicable) - Corona Barlow DO Familial anesthetic complications: None Was Beta Maria Luz taken within 24 hours: N/A Was Clonidine taken within 24 hours: N/A Last intake: Intake Last Liquid Date 12/09/22 Last Liquid Time 16:00 Last Solid Date 12/09/22 Last Solid Time 18:00 Social Tobacco (chews) and No alcohol Exam alert, oriented x 3, clear to auscultation bilaterally and regular rate & rhythm Airway Mallampati: Class II Dentition: full CV/HEM Hypertension Metabolic Diabetes Mellitus Anesthetic Plan ASA status: 3 Anesthesia: General Risk of > 500 ml blood loss (7ml/kg in children): No Medications/Allergies Home Medications Medication Instructions Recorded Confirmed Last Taken Type allopurinol 300 mg tablet 300 mg PO DAILY 12/12/19 12/10/22 12/09/22 History tamsulosin 0.4 mg capsule (Flomax) 0.4 mg PO BID 12/12/19 12/10/22 12/09/22 History amlodipine 5 mg tablet 5 mg PO DAILY #90 tabs 04/15/22 12/10/22 12/09/22 Rx magnesium 250 mg tablet See Rx Instructions PO DAILY 09/07/22 12/10/22 12/09/22 History tramadol 50 mg tablet 50 mg PO QID PRN Pain #60 tabs 09/14/22 12/10/22 12/09/22 Rx finasteride 5 mg tablet 5 mg PO DAILY #90 tabs 10/13/22 12/10/22 12/09/22 Rx diclofenac sodium 50 mg 50 mg PO BID low back pain #90 tabs 11/18/22 12/10/22 12/09/22 Rx tablet,delayed release Allergies Allergy/AdvReac Type Severity Reaction Status Date / Time COVID-19 vaccine, Allergy RAsh Verified 12/10/22 08:07 Ad26.COV2.S (Jans Current Medications Generic Name Dose Route Start Last Admin Trade Name Freq PRN Reason Stop Dose Admin Sodium Chloride 1,000 mls @ 30 mls/hr 12/10/22 08:00 12/10/22 08:18 Sodium Chloride 0.9% IV 12/11/22 07:59 30 mls/hr .Q24H KRISTEL Administration PFSH Anesthesia Medical History BPH NOS w ur obs/LUTS Chronic midline low back pain with bilateral sciatica Elevated PSA Encounter for long-term opiate analgesic use Gout History of colon polyps HTN (hypertension), benign Opioid use agreement exists Surgical History H/O hemorrhoidectomy H/O prostate biopsy History of appendectomy History of bone marrow biopsy History of colonoscopy with polypectomy (01/09/20) History of umbilical hernia repair 2019 - Dr Mendoza Previous back surgery Family History Mother , at age 89 No problems noted. Father , at age 59 Cirrhosis of liver Other Diabetes Denies family history of Anesthesia complication Bleeding disorder Social History (Updated 12/08/22 @ 14:52 by Fay Flores) Smoking and tobacco status: former smoker Alcohol intake: current Alcohol type: beer Substance/Drug Use: never Marital status: Current occupational status: retired Data Anesthesia Cardiac Studies: No Data to Display
--- NOTE | 2022-12-10 09:09 | PM.HP ---
Providers/Chief Complaint Primary Care Provider: Von Escalante MD Chief Complaint: K42.9 History of Present Illness Tl Crandall is a 77 year old male here for laparoscopic repair of a recurrent incisional hernia with mesh. Hernia measures approximately 4 cm in diameter preoperatively. Medications/Allergies Home Medications Medication Instructions Recorded Confirmed Last Taken Type allopurinol 300 mg tablet 300 mg PO DAILY 12/12/19 12/10/22 12/09/22 History tamsulosin 0.4 mg capsule (Flomax) 0.4 mg PO BID 12/12/19 12/10/22 12/09/22 History amlodipine 5 mg tablet 5 mg PO DAILY #90 tabs 04/15/22 12/10/22 12/09/22 Rx magnesium 250 mg tablet See Rx Instructions PO DAILY 09/07/22 12/10/22 12/09/22 History tramadol 50 mg tablet 50 mg PO QID PRN Pain #60 tabs 09/14/22 12/10/22 12/09/22 Rx finasteride 5 mg tablet 5 mg PO DAILY #90 tabs 10/13/22 12/10/22 12/09/22 Rx diclofenac sodium 50 mg 50 mg PO BID low back pain #90 tabs 11/18/22 12/10/22 12/09/22 Rx tablet,delayed release Allergies Allergy/AdvReac Type Severity Reaction Status Date / Time COVID-19 vaccine, Allergy RAsh Verified 12/10/22 08:07 Ad26.COV2.S (Jans PFSH Acute PFSH: Medical History BPH NOS w ur obs/LUTS Chronic midline low back pain with bilateral sciatica Elevated PSA Encounter for long-term opiate analgesic use Gout History of colon polyps HTN (hypertension), benign Opioid use agreement exists Surgical History H/O hemorrhoidectomy H/O prostate biopsy History of appendectomy History of bone marrow biopsy History of colonoscopy with polypectomy (01/09/20) History of umbilical hernia repair 2019 - Dr Mendoza Previous back surgery Family History Mother , at age 89 No problems noted. Father , at age 59 Cirrhosis of liver Other Diabetes Denies family history of Anesthesia complication Bleeding disorder Social History (Updated 12/08/22 @ 14:52 by Fay Flores) Smoking and tobacco status: former smoker Alcohol intake: current Alcohol type: beer Substance/Drug Use: never Marital status: Current occupational status: retired Vitals/I&O/Wt Last Vital Signs Temp 97.6 F 12/10/22 08:00 Pulse 56 L 12/10/22 08:00 Resp 16 12/10/22 08:00 BP 142/90 12/10/22 08:00 Pulse Ox 97 12/10/22 08:00 O2 Del Method Room Air 12/10/22 08:01 Weight last 48 hrs Weight 234 lb A&P Assessment and plan (1) Recurrent incisional hernia: Plan Laparoscopic repair of recurrent incisional hernia with mesh. Preoperative measurement of the hernia is 4 cm in diameter Attestations Medical Necessity Statement*: Home Coding Level of Care Code Acute Code for Chg Fwd Diagnoses Recurrent incisional hernia K43.2
[2022-12-10] MEDS: ceFAZolin 2,000 MG in sodium chloride 0.9% (plus) 50 ML 100 MG IV (09:38)
[2022-12-10] MEDS: lidocaine-epi 2% 20 mL INJ 4 ML INJECTION (10:04)
--- NOTE | 2022-12-10 10:41 | PM.OP ---
Operative Report Date of procedure: December 10, 2022 Pre-op diagnosis: Reducible recurrent incisional hernia Post-op diagnosis: same Procedure done: Laparoscopic repair of recurrent incisional hernia with mesh Implants: 6 inch shortening Ventralight mesh Specimens removed/disposition: Hernia sac Surgeon: Dr. Corona Barlow DO Anesthesia: General Estimated blood loss (mL): 5 Complications: None apparent Brief History: Is a very pleasant 77-year-old gentleman who came into my office with a recurrent incisional hernia. Laparoscopic repair with mesh was indicated. The risk and benefits were explained and documented. Procedure: Patient was wheeled into the operative room and placed on the OR table in a supine position. Abdomen was inspected prepped and draped in usual sterile fashion. Time-out was performed and all present were in agreement. A 15 blade scalp was used to make a 5 millimeter incision left upper quadrant. A Veress needle was placed into the incision and intra-abdominal insufflation was brought to 15 millimeters of mercury. A 12 millimeter trocar was placed into the left lower quadrant. The energy but device was then used to cut out the hernia sac. The hernia defect measured 4 cm in diameter. A 6 inch ventral light mesh was placed into the abdomen and brought up through the umbilicus using an the Joseph-Eunice. The mesh was then tacked in place in a double crown fashion. The skeleton of the mesh was removed via the left lower quadrant. The hernia sac was then removed from the abdomen via the left lower quadrant. The left lower quadrant port site was closed with an 0 Vicryl suture in a Joseph-Eunice in a [id number] fashion. Incisions were closed with 4 O Vicryl in a subcuticular interrupted fashion. Skin glue was applied. A dressing that included cotton balls and a Tegaderm was placed over the umbilicus. Patient tolerated the procedure well.
[2022-12-10] MEDS: HYDROmorphone 1 mg/mL INJ 1 mL 0.5 MG IVP (10:43)
[2022-12-10] MEDS: fentaNYL 50 mcg/mL INJ 2mL IVP (10:55)
[2022-12-10] MEDS: HYDROcodone-acetaminophen 10-325 mg Tablet 1 TAB PO (11:38)
--- NOTE | 2022-12-10 12:52 | ANE.PACU2 ---
Inpatient post-anesthesia follow up: Airway intact: Yes Vital signs: Temperature 97.4 F Pulse Rate 50 Respiratory Rate 14 Blood Pressure 123/73 Pulse Oximetry 93 Oxygen Delivery Me thod Room Air Oxygen Flow Rate 6 Fraction of Inspir ed Oxygen Hydration adequate: Yes Nausea and vomiting: Yes Pain level: 1 Mental status: Baseline
== END 2022-12-10 12:35 | disposition home or self-care (01) ==
PROVIDERS: PCP Family Medicine; Visit Provider Surgery
PROC: 0WQF4ZZ Repair Abdominal Wall, Percutaneous Endoscopic Approach (ICD-10-PCS; CPT 49615; principal; 2022-12-10 09:20)
DX: K43.2 Incisional hernia without obstruction or gangrene (principal); F17.290 Nicotine dependence, other tobacco product, uncomplicated; I10 Essential (primary) hypertension; E11.9 Type 2 diabetes mellitus without complications
CPT/HCPCS: 49615; 88302; J0690; J1170; J2704; J3010; J3490; J7030

== ENCOUNTER → 2022-12-23 13:33 | Outpatient (BNVA) | payer MEDICARE, SELFPAY | PROVIDERS: PCP Family Medicine; Visit Provider Surgery | DX: Z98.890 Other specified postprocedural states (principal); Z87.19 Personal history of other diseases of the digestive system | CPT/HCPCS: 99024 ==

== ENCOUNTER → 2023-04-15 10:42 | Outpatient (BNVA) | payer MEDICARE, SELFPAY | PROVIDERS: PCP Family Medicine; Visit Provider Family Medicine | DX: Z51.81 Encounter for therapeutic drug level monitoring (principal); R73.03 Prediabetes; R97.20 Elevated prostate specific antigen [PSA]; Z00.00 Encounter for general adult medical examination without abnormal findings | CPT/HCPCS: 80053; 83036; 84153; 85025 ==

== ENCOUNTER → 2023-10-14 10:01 | Outpatient (BNVA) | payer MEDICARE, SELFPAY | PROVIDERS: PCP Family Medicine; Visit Provider Family Medicine | DX: Z51.81 Encounter for therapeutic drug level monitoring (principal); R97.20 Elevated prostate specific antigen [PSA]; I10 Essential (primary) hypertension; Z13.220 Encounter for screening for lipoid disorders; E11.9 Type 2 diabetes mellitus without complications; E55.9 Vitamin D deficiency, unspecified | CPT/HCPCS: 80053; 80061; 82306; 83036; 84153; 85025 ==

== ENCOUNTER 2023-10-22 11:09 | Emergency (ER) | payer MEDICARE, SELFPAY ==
[2023-10-22 11:13] VITALS: BP 133/78; PULSE 96; RESP 18; TEMP 36.3; O2SAT 98
--- NOTE | 2023-10-22 11:23 | W.ED.MALEGU ---
HPI - Male Genitourinary General: Chief complaint: Urogenital-Male Stated complaint: trouble urinating Time Seen by Provider: 10/22/23 11:19 Source: patient Mode of arrival: ambulatory Limitations: no limitations History of Present Illness: 78-year-old male has a history of BPH he states that he has had urinary retention in the past. He states that he has not been able to urinate since 11 PM last night has been having some fullness in his lower abdomen along with pain. He is on Flomax denies any worsening proving factors. Associated symptoms: Deny dysuria, nausea or vomiting Review of Systems Const: Denies: fever(s), chills, body aches or change in appetite ENMT: Denies: throat pain or dental pain Card: Denies: chest pain Resp: Denies: dyspnea GI: Reports: abdominal pain; Denies: nausea, vomiting or diarrhea : Reports: difficulty urinating; Denies: dysuria Musc: Denies: neck pain or back pain Skin/Breast: Denies: rash Neuro: Denies: headache(s) PFSH ED PFSH: Medical History Opioid use agreement exists Encounter for long-term opiate analgesic use BPH NOS w ur obs/LUTS Elevated PSA History of colon polyps Gout HTN (hypertension), benign Chronic midline low back pain with bilateral sciatica Surgical History History of incisional hernia repair 12/10/22 lap repair of recurrent incisional hernia w/mesh History of bone marrow biopsy Previous back surgery History of umbilical hernia repair 2019 - Dr Mendoza History of colonoscopy with polypectomy (01/09/20) H/O prostate biopsy H/O hemorrhoidectomy History of appendectomy Family History Mother , at age 89 No problems noted. Father , at age 59 Cirrhosis of liver Other Diabetes Denies family history of Anesthesia complication Bleeding disorder Social History Smoking and tobacco/nicotine status: former use of tobacco/nicotine Alcohol intake: current Alcohol intake frequency: few times a month Alcohol type: beer Substance/Drug Use: never Marital status: Current occupational status: retired Physical Exam Const: COMMON NORMALS: no acute distress, patient oriented x3 and healthy appearing HENMT: COMMON NORMALS: normocephalic and atraumatic HEAD & SCALP: normocephalic and atraumatic Eye: COMMON NORMALS: Equal, round and reactive pupils present and EOMs intact bilaterally PUPIL: Yes Equal, round and reactive pupils present Neck/C-Spine: COMMON NORMALS: full ROM and supple Chest: COMMONS NORMALS: normal inspection of the chest Resp: COMMON NORMALS: normal respiratory effort Cardio: COMMON NORMALS: regular rate RATE: regular rate GI: COMMON NORMALS: Normal to inspection, nondistended, normoactive bowel sounds present, Soft to palpation, non-tender and no masses PALPATION: Yes Soft to palpation Extremity: COMMON NORMALS: normal to inspection and full ROM Neuro: COMMON NORMALS: patient oriented x3, moves all extremities and no focal motor deficits Psych: COMMON NORMALS: mental status grossly normal, Normal thought process present and cooperative THOUGHT PROCESS: Normal thought process present Skin: COMMON NORMALS: no rashes or lesions noted and no wounds GENERAL SKIN EXAM: no rashes or lesions noted Course Vital Signs: Vital signs: Vital Signs Temperature 97.4 F L 10/22/23 11:13 Pulse Rate 96 10/22/23 11:13 Respiratory Rate 18 10/22/23 11:13 Blood Pressure 133/78 10/22/23 11:13 Pulse Oximetry 98 10/22/23 11:13 Oxygen Delivery Me thod Room Air 10/22/23 11:13 MDM - Male Medical Decision Making Patient presents for urinary retention he had roughly 800 mL out with Palumbo no signs UTI we will leave Palumbo in place with leg bag he is follow-up with urology along with his PCP and return if worsening he understands agrees to plan. Medical Records I reviewed the patient's medical records. Lab Data I reviewed the patient's lab results. Laboratory Results Urine Color Yellow (Yellow) 10/22/23 11:41 Urine Appearance Clear (CLEAR) 10/22/23 11:41 Urine pH 6 (5-7) 10/22/23 11:41 Ur Specific [place] 1.020 (1.005-1.030) 10/22/23 11:41 Urine Protein Neg (Negative) 10/22/23 11:41 Urine Glucose (UA) Norm (Normal) 10/22/23 11:41 Urine Ketones 1+ (Negative) H 10/22/23 11:41 Urine Blood Neg (Negative) 10/22/23 11:41 Urine Nitrate Negative (Negative) 10/22/23 11:41 Urine Bilirubin Neg (Negative) 10/22/23 11:41 Urine Urobilinogen Norm mg/dL (Negative) 10/22/23 11:41 Ur Leukocyte Esterase Negative (Negative) 10/22/23 11:41 No radiology studies performed this visit Discharge Plan Discharge Patient Disposition: Home Clinical Impression: Acute urinary retention Condition: Stable Prescriptions: No Action magnesium 250 mg tablet See Rx Instructions .ROUTE .COMPLEX Rx Instructions: Take one tab PO daily on Wed and cholecalciferol (vitamin D3) 25 mcg (1,000 unit) capsule 25 mcg PO QAM diclofenac sodium 50 mg tablet,delayed release (DR/EC) 50 mg PO BID Qty: 90 3RF tamsulosin 0.4 mg capsule 0.8 mg PO QAM allopurinol 300 mg tablet 300 mg PO QAM amlodipine 5 mg tablet 5 mg PO QAM tramadol 50 mg tablet 50 mg PO BEDTIME finasteride 5 mg tablet 5 mg PO QAM Discharge Orders: Discharge ED (Routine); Ordered 10/22/23 Ordered By: Jason Rene Referrals: Von Escalante MD [Primary Care Provider] - 4-7 days Discharge Diet: Advance as tolerated Discharge Activity: Resume usual activity Patient Instructions: Urinary Retention in Men (ED) Coding Level of Care Code ED Maintenance Aide for Aliyah Brock
[2023-10-22 11:56] LABS: Add Urine Microscopic? NO; Charge for UA Resulting for Rev
[2023-10-22 12:05] LABS: Glucose Urine UA Norm (Normal); Ketones Urine 1+ (Negative); Protein Urine Neg (Negative); Urine Appearance Clear (CLEAR); Urine Color Yellow (Yellow); pH Urine 6 (5-7)
[2023-10-22 12:06] LABS: Bilirubin Urine Neg (Negative); Blood Urine Neg (Negative); Leukocyte Esterase Urine Negative (Negative); Nitrate Urine Negative (Negative); Urobilinogen Urine Norm (Negative)
[2023-10-22 12:39] VITALS: BP 133/78; PULSE 94; RESP 16; TEMP 36.3; O2SAT 98
--- NOTE | 2023-10-25 09:10 | DCPLANNER ---
Urology referral sent to Jerm[facility] F[facility]
== END 2023-10-22 12:41 | disposition home or self-care (01) ==
PROVIDERS: Emergency Provider Emergency Medicine; PCP Family Medicine
DX: R33.9 Retention of urine, unspecified (principal); Z87.891 Personal history of nicotine dependence; I10 Essential (primary) hypertension
CPT/HCPCS: 51702; 81003; 99283

== ENCOUNTER → 2023-11-02 16:31 | Outpatient (BNVA) | payer MEDICARE, SELFPAY | PROVIDERS: PCP Family Medicine; Visit Provider Family Medicine | DX: N40.1 Benign prostatic hyperplasia with lower urinary tract symptoms (principal) | CPT/HCPCS: 80048 ==

== ENCOUNTER → 2023-11-09 09:56 | Outpatient (BNVA) | payer MEDICARE, SELFPAY | PROVIDERS: PCP Family Medicine; Visit Provider Family Medicine | DX: N18.9 Chronic kidney disease, unspecified (principal) | CPT/HCPCS: 80048 ==

== ENCOUNTER 2023-11-12 20:40 | Emergency (ER) | payer MEDICARE, SELFPAY ==
[2023-11-12 20:45] VITALS: BP 156/95; PULSE 72; RESP 16; TEMP 36.4; O2SAT 96; BMI 32.3
--- NOTE | 2023-11-12 23:05 | ED_ITS ---
HPI - Male Genitourinary 2 General: Chief complaint: Urogenital-Male Stated complaint: Blood in Urian, Bladder issues Time Seen by Provider: 11/12/23 23:05 Source: patient Mode of arrival: ambulatory Limitations: no limitations History of Present Illness: Patient is a 78-year-old male with a known history of BPH here for complaints of an uncomfortable/leaking Haley catheter. Patient states catheter was placed approximately 3 weeks ago for acute urinary retention related to his BPH. He states he sees urology in [place]. He is scheduled for a follow-up visit next month for cystoscopy. Patient states he has been tolerating his catheter well until today when he noticed urine was leaking around the catheter. He is reporting severe bladder spasms and uncomfortableness. He is not having any flank pain. No fevers. Does believe he noticed a little bit of blood in his bag. No clots. Patient states he is taking Hyoscyamine for the bladder spasms but has not been taking it every 4 hours as prescribed. MD Complaint: other (leaking/uncomfortable haley, bladder spasms) Onset (ago): hour(s) Duration: constant Exacerbating factors: other (sitting up) Associated symptoms: Reports no associated symptoms Review of Systems 2 Const: Denies: fever(s), chills, body aches, fatigue or malaise Card: Denies: chest pain Resp: Denies: dyspnea GI: Denies: abdominal pain : Reports: other (bladder spasms, catheter leaking); Denies: flank pain PFSH ED 2 PFSH: Medical History Opioid use agreement exists Encounter for long-term opiate analgesic use BPH NOS w ur obs/LUTS Elevated PSA History of colon polyps Gout HTN (hypertension), benign Chronic midline low back pain with bilateral sciatica Surgical History History of incisional hernia repair 12/10/22 lap repair of recurrent incisional hernia w/mesh History of bone marrow biopsy Previous back surgery History of umbilical hernia repair 2019 - Dr Mendoza History of colonoscopy with polypectomy (01/09/20) H/O prostate biopsy H/O hemorrhoidectomy History of appendectomy Family History Mother , at age 89 No problems noted. Father , at age 59 Cirrhosis of liver Other Diabetes Denies family history of Anesthesia complication Bleeding disorder Social History Smoking and tobacco/nicotine status: former use of tobacco/nicotine Alcohol intake: current Alcohol intake frequency: few times a month Alcohol type: beer Substance/Drug Use: never Marital status: Current occupational status: retired Physical Exam 2 Const: COMMON NORMALS: no acute distress, patient oriented x3, no limitations, alert and well nourished GENERAL APPEARANCE: cooperative O RIENTATION/CONSCIOUSNESS: Yes awake, Yes oriented to person, Yes oriented to place and Yes oriented to time Resp: COMMON NORMALS: normal respiratory effort and clear to auscultation bilaterally AUSCULTATION: clear to auscultation bilaterally Cardio: COMMON NORMALS: regular rate and regular rhythm RATE: regular rate RHYTHM: regular rhythm GI: COMMON NORMALS: Normal to inspection, nondistended, normoactive bowel sounds present, Soft to palpation, non-tender, No hepatosplenomegaly present and no masses PALPATION: Yes Soft to palpation and Yes No hepatosplenomegaly present : COMMON NORMALS: Yes no CVA tenderness BLADDER/KIDNEY EXAM: Yes catheter in place and Yes no CVA tenderness MEATUS: meatus normal Back/Pelvis: COMMON NORMALS: no CVA tenderness Neuro: COMMON NORMALS: patient oriented x3 SENSORIUM/ORIENTATION: Yes alert, Yes oriented to person, Yes oriented to place and Yes oriented to time Course 2 Vital Signs: Vital signs: Vital Signs Temperature 97.5 F L 11/12/23 20:45 Pulse Rate 72 11/12/23 20:45 Respiratory Rate 16 11/12/23 20:45 Blood Pressure 156/95 11/12/23 20:45 Pulse Oximetry 96 11/12/23 20:45 Oxygen Delivery Me thod Room Air 11/12/23 20:45 MDM - Male Medical Decision Making Catheter irrigated/repositioned and patient feels much better. Vitals stable. Labs normal. UA highly indicative of infection. Patient was given IM Rocephin prior to discharge. Will place him on Ciprofloxacin.. He has plans to contact his urology office on Wednesday if symptoms do not improve. Differential Diagnosis Likely urinary tract infection Medical Records I reviewed the patient's medical records. Lab Data I reviewed the patient's lab results. 11/12/23 23:18 11/12/23 23:18 Laboratory Results WBC 10.90 10^3/uL (3.29-11.43) 11/12/23 23:18 RBC 4.67 10^6/uL (3.85-5.65) 11/12/23 23:18 Hgb 14.30 g/dL (11.27-16.99) 11/12/23 23:18 Hct 42.8 % (37-53) 11/12/23 23:18 MCV 91.6 fl (82-101) 11/12/23 23:18 MCH 30.6 pg (27-33) 11/12/23 23:18 MCHC 33.4 g/dL (30-55) 11/12/23 23:18 RDW 13.2 % (12.1-15.1) 11/12/23 23:18 Plt Count 230 10^3/cmm (157-399) 11/12/23 23:18 MPV 9.8 fL (7.4-10.4) 11/12/23 23:18 Neut % (Auto) 65.3 % 11/12/23 23:18 Lymph % (Auto) 25.8 % 11/12/23 23:18 [place] % (Auto) 5.7 % 11/12/23 23:18 Eos % (Auto) 2.2 % 11/12/23 23:18 Baso % (Auto) 0.6 % 11/12/23 23:18 Neut # (Auto) 7.13 10^3/uL (1.8-7.7) 11/12/23 23:18 Lymph # (Auto) 2.8 10^3/uL (0.8-4.8) 11/12/23 23:18 [place] # (Auto) 0.6 10^3/uL (0.2-0.9) 11/12/23 23:18 Eos # (Auto) 0.2 10^3/uL (0.0-0.8) 11/12/23 23:18 Baso # (Auto) 0.1 10^3/uL (0.0-0.1) 11/12/23 23:18 Nucleated RBC % (auto) 0 % 11/12/23 23:18 Nucleated RBCs # 0.0 /100WBC 11/12/23 23:18 Sodium 136 mmol/L (136-145) 11/12/23 23:18 Potassium 4.3 mmol/L (3.5-5.1) 11/12/23 23:18 Chloride 100 mmol/L (98-107) 11/12/23 23:18 Carbon Dioxide 25 mmol/L (22-29) 11/12/23 23:18 Anion Gap 15.3 (5-19) 11/12/23 23:18 BUN 22 mg/dL (8-23) 11/12/23 23:18 Creatinine 1.2 mg/dL (0.7-1.2) 11/12/23 23:18 GFR Calculation Not Reportable 11/12/23 23:18 Glucose 118 mg/dL (65-115) H 11/12/23 23:18 Calculated Osmolality 286 mOsm/kg (285-295) 11/12/23 23:18 Calcium 9.1 mg/dL (8.5-10.5) 11/12/23 23:18 Total Bilirubin 0.3 mg/dL (0.15-1.2) 11/12/23 23:18 AST 18 U/L (0-40) 11/12/23 23:18 ALT 30 U/L (0-41) 11/12/23 23:18 Alkaline Phosphatase 81 U/L (40-130) 11/12/23 23:18 Total Protein 7.4 g/dL (6.6-8.7) 11/12/23 23:18 Albumin 4.0 g/dL (3.5-5.2) 11/12/23 23:18 Globulin 3.4 g/dL (1.3-4.6) 11/12/23 23:18 Urine Color [place] (Yellow) A 11/12/23 23:37 Urine Appearance Cloudy (CLEAR) A 11/12/23 23:37 Urine pH 5 (5-7) 11/12/23 23:37 Ur Specific [place] 1.020 (1.005-1.030) 11/12/23 23:37 Urine Protein 3+ (Negative) H 11/12/23 23:37 Urine Glucose (UA) Norm (Normal) 11/12/23 23:37 Urine Ketones 1+ (Negative) H 11/12/23 23:37 Urine Blood 3+ (Negative) H 11/12/23 23:37 Urine Nitrate Positive (Negative) H 11/12/23 23:37 Urine Bilirubin 1+ (Negative) H 11/12/23 23:37 Urine Urobilinogen 4 mg/dL (Negative) H 11/12/23 23:37 Ur Leukocyte Esterase 2+ (Negative) H 11/12/23 23:37 Urine RBC 50-80 /hpf (0-2) H 11/12/23 23:37 Urine WBC 5-10 /hpf (0-5) H 11/12/23 23:37 Ur Squamous Epith Cells 0-4 /hpf (0-5) H 11/12/23 23:37 Amorphous Sediment Trace /hpf 11/12/23 23:37 Urine Bacteria 1+ /hpf (NONE) H 11/12/23 23:37 No radiology studies performed this visit Discharge Plan Discharge Patient Disposition: Home Clinical Impression: Bladder spasm, Encounter for Haley catheter fitting and adjustment UTI (urinary tract infection) due to urinary indwelling Haley catheter Qualifiers: Indwelling urinary catheter type: indwelling urethral catheter Encounter type: initial encounter Qualified Code(s): T83.511A - Infection and inflammatory reaction due to indwelling urethral catheter, initial encounter Condition: Stable Prescriptions: New Cipro 500 mg tablet 500 mg PO Q12H Qty: 14 0RF No Action (DME) Haley cather stabilization device See Rx Instructions .Route .MEDSUPPLY Qty: 1 2RF Rx Instructions: Sticker to secure catheter magnesium 250 mg tablet See Rx Instructions .ROUTE .COMPLEX Rx Instructions: Take one tab PO daily on Wed and cholecalciferol (vitamin D3) 25 mcg (1,000 unit) capsule 25 mcg PO QAM diclofenac sodium 50 mg tablet,delayed release (DR/EC) 50 mg PO BID Qty: 90 3RF nystatin 100,000 unit/gram cream 1 applic topical BID Qty: 30 2RF tramadol 50 mg tablet 50 mg PO BEDTIME Qty: 60 5RF finasteride 5 mg tablet See Rx Instructions .ROUTE .COMPLEX Qty: 90 3RF Dose Instruction: TAKE 1 TABLET BY MOUTH EVERY DAY Rx Instructions: TAKE 1 TABLET BY MOUTH EVERY DAY tamsulosin 0.4 mg capsule 0.8 mg PO QAM allopurinol 300 mg tablet 300 mg PO QAM amlodipine 5 mg tablet 5 mg PO QAM Discharge Orders: Discharge ED (Routine); Ordered 11/13/23 Ordered By: Romy Desouza Referrals: Von Escalante MD [Primary Care Provider] - Patient Instructions: Haley Catheter Care, Urinary Tract Infection in Men (DC), Haley Catheter Placement and Care (ED) Coding Level of Care Code ED Mechanical Maintenance Engineer for Aliyah Brock
[2023-11-12 23:23] LABS: Basophils # 0.1 10^3/uL (0.0-0.1); Basophils % 0.6 %; Eosinophils # 0.2 10^3/uL (0.0-0.8); Eosinophils % 2.2 %; Hematocrit 42.8 % (37-53); Lymphocytes # 2.8 10^3/uL (0.8-4.8); Lymphocytes % 25.8 %; Mean Corpuscular HGB Conc 33.4 g/dL (30-55); Mean Corpuscular Hemoglobin 30.6 pg (27-33); Mean Corpuscular Volume 91.6 fl (82-101); Mean Platelet Volume 9.8 fL (7.4-10.4); Monocytes # 0.6 10^3/uL (0.2-0.9); Monocytes % 5.7 %; Neutrophils # 7.13 10^3/uL (1.8-7.7); Neutrophils % 65.3 %; Nucleated Red Blood Cells % 0 %; Platelet Count 230 10^3/cmm (157-399); Red Blood Count 4.67 10^6/uL (3.85-5.65); Red Cell Distribution Width 13.2 % (12.1-15.1)
[2023-11-12 23:40] LABS: Alanine Aminotransferase 30 U/L (0-41); Alkaline Phosphatase 81 U/L (40-130); Anion Gap 15.3 (5-19); Aspartate Amino Transferase 18 U/L (0-40); Blood Urea Nitrogen 22 mg/dL (8-23); Calcium 9.1 mg/dL (8.5-10.5); Carbon Dioxide 25 mmol/L (22-29); Chloride 100 mmol/L (98-107); Creatinine Clr Calc Pharmacy 61.7044; Globulin 3.4 g/dL (1.3-4.6); Glucose 118 mg/dL (65-115); Osmolality Calculated 286 mOsm/kg (285-295); Potassium 4.3 mmol/L (3.5-5.1); Sodium 136 mmol/L (136-145); Total Bilirubin 0.3 mg/dL (0.15-1.2); Total Protein 7.4 g/dL (6.6-8.7)
[2023-11-13 00:09] LABS: Blood Urine 3+ (Negative); Glucose Urine UA Norm (Normal); Ketones Urine 1+ (Negative); Nitrate Urine Positive (Negative); Protein Urine 3+ (Negative); Urine Appearance Cloudy (CLEAR); Urine Color Orange (Yellow); pH Urine 5 (5-7)
[2023-11-13 00:10] LABS: Add Urine Microscopic? YES; Bilirubin Urine 1+ (Negative); Leukocyte Esterase Urine 2+ (Negative); Urobilinogen Urine 4 mg/dL (Negative)
[2023-11-13 00:11] LABS: Add Urine Culture? Yes; Amorphous Sediment Urine TRACE /hpf; Bacteria Urine 1+ /hpf; RBC Urine 50-80 /hpf (0-2); Squamous Epithelial Cell Urine 0-4 /hpf (0-5)
[2023-11-13] MEDS: cefTRIAXone 1,000 MG in water for injection-sterile 2.1 ML 2.10000000000000009 MG IM (01:08)
[2023-11-13 01:43] VITALS: PULSE 62; RESP 16; O2SAT 94
== END 2023-11-13 01:34 | disposition home or self-care (01) ==
PROVIDERS: Emergency Provider Physician Assistant; PCP Family Medicine
DX: Z46.6 Encounter for fitting and adjustment of urinary device (principal); T83.511A Infection and inflammatory reaction due to indwelling urethral catheter, initial encounter; N32.89 Other specified disorders of bladder; Z87.891 Personal history of nicotine dependence; I10 Essential (primary) hypertension
CPT/HCPCS: 36415; 80053; 81001; 81003; 85025; 87077; 87086; 87186; 96372; 99284; J0696

== ENCOUNTER 2023-12-08 08:52 | Outpatient (CLI) | payer MEDICARE, SELFPAY ==
[2023-12-08 09:58] LABS: Basophils # 0.1 10^3/uL (0.0-0.1); Basophils % 0.8 %; Eosinophils # 0.2 10^3/uL (0.0-0.8); Eosinophils % 2.7 %; Hematocrit 43.4 % (37-53); Mean Corpuscular HGB Conc 33.9 g/dL (30-55); Mean Corpuscular Hemoglobin 30.6 pg (27-33); Mean Corpuscular Volume 90.4 fl (82-101); Mean Platelet Volume 10.8 fL (7.4-10.4); Monocytes # 0.6 10^3/uL (0.2-0.9); Monocytes % 8.6 %; Neutrophils # 3.41 10^3/uL (1.8-7.7); Neutrophils % 46.8 %; Nucleated Red Blood Cells % 0 %; Platelet Count 170 10^3/cmm (157-399); Red Cell Distribution Width 13.5 % (12.1-15.1)
[2023-12-08 10:25] LABS: Blood Urea Nitrogen 19 mg/dL (8-23); Calcium 8.8 mg/dL (8.5-10.5); Carbon Dioxide 23 mmol/L (22-29); Chloride 104 mmol/L (98-107); Glucose 107 mg/dL (65-115); Osmolality Calculated 295 mOsm/kg (285-295); Sodium 141 mmol/L (136-145)
== END 2023-12-08 08:53 | disposition home or self-care (01) ==
PROVIDERS: PCP Family Medicine; Visit Provider Urology
DX: Z01.89 Encounter for other specified special examinations (principal)
CPT/HCPCS: 36415; 80048; 85025

== ENCOUNTER → 2023-12-09 14:41 | Outpatient (BNVA) | payer MEDICARE, SELFPAY | PROVIDERS: PCP Family Medicine; Visit Provider Internal Medicine Cardiovascular Disease | DX: Z01.818 Encounter for other preprocedural examination (principal); I10 Essential (primary) hypertension; I44.0 Atrioventricular block, first degree | CPT/HCPCS: 93005 ==

== ENCOUNTER → 2024-04-17 11:29 | Outpatient (BNVA) | payer MEDICARE, SELFPAY | PROVIDERS: PCP Family Medicine; Visit Provider Family Medicine | DX: E55.9 Vitamin D deficiency, unspecified (principal); Z51.81 Encounter for therapeutic drug level monitoring | CPT/HCPCS: 80053; 82306; 85025 ==

== ENCOUNTER → 2024-10-17 10:11 | Outpatient (BNVA) | payer MEDICARE, SELFPAY | PROVIDERS: PCP Family Medicine; Visit Provider Family Medicine | DX: Z51.81 Encounter for therapeutic drug level monitoring (principal); R73.09 Other abnormal glucose; R97.20 Elevated prostate specific antigen [PSA]; Z13.6 Encounter for screening for cardiovascular disorders | CPT/HCPCS: 80053; 80061; 83036; 84153; 85025 ==

== ENCOUNTER 2024-10-19 11:59 | Outpatient (CLI) | payer MEDICARE, SELFPAY ==
--- NOTE | 2024-10-19 12:05 | XR_ITS ---
WS: [id number] Chest 2 views, 10/19/2024 Clinical Data: Cough Comparison: 2 view chest, 12/29/2019 Findings: No nodules, masses or effusions are seen. The heart is normal. The pulmonary vascularity is not increased. No pneumonia or pneumothorax is seen. The diaphragms are flattened. The aortic arch and descending thoracic aorta show tortuosity. XR/XR chest 2V* [id number] Impression: Atherosclerosis and hyperinflation.
== END 2024-10-19 12:00 | disposition home or self-care (01) ==
PROVIDERS: PCP Family Medicine; Visit Provider Family Medicine
DX: R06.00 Dyspnea, unspecified (principal); I70.90 Unspecified atherosclerosis; R93.89 Abnormal findings on diagnostic imaging of other specified body structures
CPT/HCPCS: 71046

== ENCOUNTER → 2024-10-30 13:49 | Outpatient (BNVA) | payer MEDICARE, SELFPAY | PROVIDERS: PCP Family Medicine; Visit Provider Family Medicine | DX: D69.6 Thrombocytopenia, unspecified (principal); Z51.81 Encounter for therapeutic drug level monitoring | CPT/HCPCS: 85025 ==

== ENCOUNTER 2024-11-28 09:45 | Oncology outpatient (recurring) (ONCR) | payer MEDICARE, SELFPAY ==
[2024-11-06 08:30] LABS: Hematocrit 44.9 % (37-53); Mean Corpuscular HGB Conc 34.3 g/dL (30-55); Mean Corpuscular Hemoglobin 30.9 pg (27-33); Mean Corpuscular Volume 90.2 fl (82-101); Platelet Count 30 10^3/cmm (157-399); Red Blood Count 4.98 10^6/uL (3.85-5.65); Red Cell Distribution Width 13.4 % (12.1-15.1); White Blood Count 14.32 10^3/uL (3.29-11.43)
[2024-11-06 08:52] LABS: Slide Review Slide Review Perform
[2024-11-06 08:54] LABS: Absolute Segmented Neutrophil 10.3 10/cmm (1.6-7.1); Band Neutrophils Absolute 0.3 10^3/cmm (0.0-1.2); Lymphocytes 19 %; Monocytes Absolute 0.3 10^3/cmm (0.1-0.6); Segmented Neutrophils 72 %; Total Cells Counted 100 (0-100)
[2024-11-06 08:55] LABS: Absolute Neutrophil 10.6 10^3/cmm (1.4-6.5); Eosinophils 0 %; Lymphocytes Absolute 2.7 10^3/cmm (1.2-3.4); Platelet Estimate Decreased (Normal)
[2024-11-13 11:18] LABS: Basophils % 0.1 %; Eosinophils # 0.4 10^3/uL (0.0-0.8); Eosinophils % 2.9 %; Hematocrit 41.7 % (37-53); Lymphocytes # 3.3 10^3/uL (0.8-4.8); Lymphocytes % 25.9 %; Mean Corpuscular HGB Conc 33.3 g/dL (30-55); Mean Corpuscular Hemoglobin 30.2 pg (27-33); Mean Corpuscular Volume 90.7 fl (82-101); Monocytes # 0.9 10^3/uL (0.2-0.9); Monocytes % 7.2 %; Neutrophils # 7.96 10^3/uL (1.8-7.7); Nucleated Red Blood Cells % 0 %; Red Cell Distribution Width 13.8 % (12.1-15.1); White Blood Count 12.61 10^3/uL (3.29-11.43)
[2024-11-13 11:54] LABS: Platelet Count 24 10^3/cmm (157-399)
[2024-11-13 11:57] LABS: Slide Review Slide Review Perform
[2024-11-20 11:42] LABS: Basophils # 0.1 10^3/uL (0.0-0.1); Basophils % 1.1 %; Eosinophils # 0.5 10^3/uL (0.0-0.8); Eosinophils % 6.6 %; Hematocrit 39.8 % (37-53); Lymphocytes # 1.8 10^3/uL (0.8-4.8); Lymphocytes % 24.4 %; Mean Corpuscular HGB Conc 33.7 g/dL (30-55); Mean Corpuscular Hemoglobin 31.1 pg (27-33); Mean Corpuscular Volume 92.3 fl (82-101); Monocytes # 0.6 10^3/uL (0.2-0.9); Monocytes % 8.1 %; Neutrophils % 59.5 %; Nucleated Red Blood Cells % 0 %; Platelet Count 31 10^3/cmm (157-399); Red Blood Count 4.31 10^6/uL (3.85-5.65); White Blood Count 7.39 10^3/uL (3.29-11.43)
[2024-11-20 11:55] LABS: Slide Review Slide Review Perform
[2024-11-28 09:52] LABS: Basophils # 0.1 10^3/uL (0.0-0.1); Basophils % 1.2 %; Eosinophils # 1.3 10^3/uL (0.0-0.8); Eosinophils % 16.4 %; Hematocrit 43.1 % (37-53); Lymphocytes # 2.7 10^3/uL (0.8-4.8); Lymphocytes % 33.6 %; Mean Corpuscular HGB Conc 32.5 g/dL (30-55); Mean Corpuscular Volume 92.5 fl (82-101); Monocytes # 0.7 10^3/uL (0.2-0.9); Neutrophils # 3.28 10^3/uL (1.8-7.7); Neutrophils % 40.6 %; Nucleated Red Blood Cells % 0 %; Platelet Count 43 10^3/cmm (157-399); Red Blood Count 4.66 10^6/uL (3.85-5.65); Red Cell Distribution Width 13.9 % (12.1-15.1)
[2024-11-28 10:12] LABS: Alanine Aminotransferase 16 U/L (0-41); Albumin Level 3.9 g/dL (3.5-5.2); Alkaline Phosphatase 101 U/L (40-130); Anion Gap 12.8 (5-19); Aspartate Amino Transferase 15 U/L (0-40); Blood Urea Nitrogen 16 mg/dL (8-23); Calcium 9.2 mg/dL (8.5-10.5); Carbon Dioxide 26 mmol/L (22-29); Chloride 107 mmol/L (98-107); Creatinine Clr Calc Pharmacy 67.0978; Globulin 3.1 g/dL (1.3-4.6); Glucose 91 mg/dL (65-115); Osmolality Calculated 295 mOsm/kg (285-295); Potassium 3.8 mmol/L (3.5-5.1); Sodium 142 mmol/L (136-145); Total Bilirubin 0.4 mg/dL (0.15-1.2)
[2024-11-28 10:20] LABS: Slide Review Slide Review Perform
== END 2024-12-02 23:59 | disposition home or self-care (01) ==
PROVIDERS: Internal Medicine Medical Oncology; PCP Family Medicine; Visit Provider Internal Medicine
DX: Z53.9 Procedure and treatment not carried out, unspecified reason; D69.3 Immune thrombocytopenic purpura; R03.0 Elevated blood-pressure reading, without diagnosis of hypertension
CPT/HCPCS: 36415; 80053; 85007; 85025; 99205; 99213

== ENCOUNTER 2024-12-26 10:56 | Oncology outpatient (recurring) (ONCR) | payer MEDICARE, SELFPAY ==
[2024-12-26 11:14] LABS: Basophils # 0.1 10^3/uL (0.0-0.1); Basophils % 1.1 %; Eosinophils # 1.6 10^3/uL (0.0-0.8); Eosinophils % 15.6 %; Hematocrit 40.6 % (37-53); Lymphocytes % 29.9 %; Mean Corpuscular HGB Conc 33.7 g/dL (30-55); Mean Corpuscular Hemoglobin 30.2 pg (27-33); Mean Corpuscular Volume 89.4 fl (82-101); Monocytes # 0.8 10^3/uL (0.2-0.9); Neutrophils # 4.55 10^3/uL (1.8-7.7); Neutrophils % 45.2 %; Nucleated Red Blood Cells % 0 %; Red Blood Count 4.54 10^6/uL (3.85-5.65); Red Cell Distribution Width 13.9 % (12.1-15.1); White Blood Count 10.05 10^3/uL (3.29-11.43)
[2024-12-26 11:24] LABS: Platelet Count 27 10^3/cmm (157-399)
== END 2025-01-01 23:59 | disposition home or self-care (01) ==
PROVIDERS: Internal Medicine Medical Oncology; PCP Family Medicine; Visit Provider Internal Medicine
DX: D69.3 Immune thrombocytopenic purpura (principal); D69.6 Thrombocytopenia, unspecified
CPT/HCPCS: 36415; 85025

== ENCOUNTER 2025-01-30 12:45 | Oncology outpatient (recurring) (ONCR) | payer MEDICARE, SELFPAY ==
[2025-01-09 13:26] LABS: Hematocrit 43.7 % (37-53); Hemoglobin 14.50 g/dL (11.27-16.99); Mean Corpuscular HGB Conc 33.2 g/dL (30-55); Mean Corpuscular Hemoglobin 30.4 pg (27-33); Mean Corpuscular Volume 91.6 fl (82-101); Nucleated Red Blood Cells % 0 %; Platelet Count 35 10^3/cmm (157-399); Red Blood Count 4.77 10^6/uL (3.85-5.65); White Blood Count 9.01 10^3/uL (3.29-11.43)
[2025-01-09 13:42] LABS: Alanine Aminotransferase 14 U/L (0-41); Albumin Level 4.0 g/dL (3.5-5.2); Alkaline Phosphatase 105 U/L (40-130); Anion Gap 15.1 (5-19); Aspartate Amino Transferase 16 U/L (0-40); Blood Urea Nitrogen 18 mg/dL (8-23); Calcium 9.1 mg/dL (8.5-10.5); Carbon Dioxide 22 mmol/L (22-29); Chloride 105 mmol/L (98-107); Globulin 3.4 g/dL (1.3-4.6); Glucose 95 mg/dL (65-115); Osmolality Calculated 288 mOsm/kg (285-295); Potassium 4.1 mmol/L (3.5-5.1); Sodium 138 mmol/L (136-145); Total Protein 7.4 g/dL (6.6-8.7)
[2025-01-09 13:50] LABS: Slide Review Slide Review Perform
[2025-01-23 12:12] LABS: Hematocrit 42.3 % (37-53); Hemoglobin 14.00 g/dL (11.27-16.99); Mean Corpuscular HGB Conc 33.1 g/dL (30-55); Mean Corpuscular Hemoglobin 29.4 pg (27-33); Mean Corpuscular Volume 88.9 fl (82-101); Nucleated Red Blood Cells % 0 %; Red Blood Count 4.76 10^6/uL (3.85-5.65); White Blood Count 9.29 10^3/uL (3.29-11.43)
[2025-01-23 12:25] LABS: Alanine Aminotransferase 13 U/L (0-41); Albumin Level 4.0 g/dL (3.5-5.2); Alkaline Phosphatase 110 U/L (40-130); Anion Gap 17.1 (5-19); Aspartate Amino Transferase 16 U/L (0-40); Blood Urea Nitrogen 18 mg/dL (8-23); Calcium 9.2 mg/dL (8.5-10.5); Carbon Dioxide 23 mmol/L (22-29); Chloride 104 mmol/L (98-107); Creatinine Clr Calc Pharmacy 48.6842; Globulin 3.3 g/dL (1.3-4.6); Glucose 87 mg/dL (65-115); Osmolality Calculated 291 mOsm/kg (285-295); Potassium 4.1 mmol/L (3.5-5.1); Sodium 140 mmol/L (136-145); Total Protein 7.3 g/dL (6.6-8.7)
[2025-01-23 12:53] LABS: Slide Review Slide Review Perform
[2025-01-23 12:54] LABS: Platelet Count 28 10^3/cmm (157-399)
[2025-01-30 12:52] LABS: Hematocrit 40.7 % (37-53); Hemoglobin 13.80 g/dL (11.27-16.99); Mean Corpuscular HGB Conc 33.9 g/dL (30-55); Mean Corpuscular Hemoglobin 29.7 pg (27-33); Mean Corpuscular Volume 87.7 fl (82-101); Nucleated Red Blood Cells % 0.1 %; Platelet Count 32 10^3/cmm (157-399); Red Blood Count 4.64 10^6/uL (3.85-5.65); White Blood Count 14.34 10^3/uL (3.29-11.43)
[2025-01-30 13:08] LABS: Alanine Aminotransferase 26 U/L (0-41); Albumin Level 4.0 g/dL (3.5-5.2); Alkaline Phosphatase 91 U/L (40-130); Anion Gap 17.0 (5-19); Aspartate Amino Transferase 15 U/L (0-40); Blood Urea Nitrogen 29 mg/dL (8-23); Calcium 8.9 mg/dL (8.5-10.5); Carbon Dioxide 24 mmol/L (22-29); Chloride 100 mmol/L (98-107); Creatinine Clr Calc Pharmacy 66.6716; Globulin 3.1 g/dL (1.3-4.6); Glucose 188 mg/dL (65-115); Osmolality Calculated 295 mOsm/kg (285-295); Potassium 4.0 mmol/L (3.5-5.1); Sodium 137 mmol/L (136-145); Total Protein 7.1 g/dL (6.6-8.7)
== END 2025-02-01 23:59 | disposition home or self-care (01) ==
PROVIDERS: Internal Medicine Medical Oncology; Nurse Practitioner; PCP Family Medicine; Visit Provider Internal Medicine
DX: Z53.9 Procedure and treatment not carried out, unspecified reason; D69.3 Immune thrombocytopenic purpura; I10 Essential (primary) hypertension; Z79.52 Long term (current) use of systemic steroids
CPT/HCPCS: 36415; 80053; 83615; 85025; 86850; 86900; 99214

== ENCOUNTER 2025-02-12 07:35 | Oncology outpatient (recurring) (ONCR) | payer MEDICARE, SELFPAY ==
[2025-02-06 12:26] LABS: Hematocrit 43.1 % (37-53); Hemoglobin 14.60 g/dL (11.27-16.99); Mean Corpuscular HGB Conc 33.9 g/dL (30-55); Mean Corpuscular Hemoglobin 30.2 pg (27-33); Mean Corpuscular Volume 89.2 fl (82-101); Nucleated Red Blood Cells % 0 %; Red Blood Count 4.83 10^6/uL (3.85-5.65); White Blood Count 19.32 10^3/uL (3.29-11.43)
[2025-02-06 12:39] LABS: Platelet Count 8 10^3/cmm (157-399)
[2025-02-06 13:04] LABS: Alanine Aminotransferase 32 U/L (0-41); Albumin Level 3.8 g/dL (3.5-5.2); Alkaline Phosphatase 75 U/L (40-130); Anion Gap 16.2 (5-19); Aspartate Amino Transferase 16 U/L (0-40); Blood Urea Nitrogen 31 mg/dL (8-23); Calcium 8.7 mg/dL (8.5-10.5); Carbon Dioxide 23 mmol/L (22-29); Chloride 105 mmol/L (98-107); Creatinine Clr Calc Pharmacy 60.7250; Globulin 2.9 g/dL (1.3-4.6); Glucose 185 mg/dL (65-115); Osmolality Calculated 301 mOsm/kg (285-295); Potassium 4.2 mmol/L (3.5-5.1); Sodium 140 mmol/L (136-145); Total Protein 6.7 g/dL (6.6-8.7)
[2025-02-06 14:20] LABS: Platelet Count 9 10^3/cmm (157-399)
[2025-02-06 15:46] VITALS: BP 153/92; PULSE 68; RESP 17; TEMP 36.3; O2SAT 96
[2025-02-06 16:08] VITALS: BP 159/85; PULSE 54; RESP 18; TEMP 36.3; O2SAT 98
[2025-02-07 13:50] VITALS: BP 156/80; PULSE 54; RESP 16; TEMP 36.8; O2SAT 96
[2025-02-07] MEDS: diphenhydrAMINE 50 mg/mL SDV 1mL 25 MG IVP (14:04)
[2025-02-07 14:45] VITALS: BP 160/82; PULSE 51; RESP 16; TEMP 36.8; O2SAT 96
[2025-02-07 15:00] VITALS: BP 155/83; PULSE 54; RESP 16; TEMP 36.8; O2SAT 96
[2025-02-07 16:21] VITALS: BP 154/82; PULSE 59; RESP 16; TEMP 37.1; O2SAT 96
[2025-02-07 16:45] VITALS: BP 152/81; PULSE 62; RESP 16; TEMP 36.7; O2SAT 96
[2025-02-08] MEDS: diphenhydrAMINE 50 mg/mL SDV 1mL 25 MG IVP (08:30)
[2025-02-08 09:20] VITALS: BP 149/89; PULSE 54; RESP 16; TEMP 36.6; O2SAT 95
[2025-02-08 09:35] VITALS: BP 149/89; PULSE 54; RESP 16; TEMP 36.5; O2SAT 95
[2025-02-08 11:26] VITALS: BP 162/89; PULSE 54; RESP 16; TEMP 36.1; O2SAT 96
[2025-02-09 07:57] LABS: Hematocrit 41.8 % (37-53); Hemoglobin 14.20 g/dL (11.27-16.99); Mean Corpuscular HGB Conc 34.0 g/dL (30-55); Mean Corpuscular Hemoglobin 30.1 pg (27-33); Mean Corpuscular Volume 88.7 fl (82-101); Nucleated Red Blood Cells % 0 %; Platelet Count 36 10^3/cmm (157-399); Red Blood Count 4.71 10^6/uL (3.85-5.65); White Blood Count 9.43 10^3/uL (3.29-11.43)
[2025-02-09] MEDS: diphenhydrAMINE 50 mg/mL SDV 1mL 25 MG IVP (08:00)
[2025-02-09 08:09] LABS: Slide Review Slide Review Perform
[2025-02-09 08:15] VITALS: BP 158/94; PULSE 61; RESP 17; TEMP 36.6; O2SAT 96
[2025-02-09 09:15] VITALS: BP 159/89; PULSE 62; RESP 17; TEMP 36.4; O2SAT 96
[2025-02-09 11:06] VITALS: BP 146/77; PULSE 63; RESP 18; TEMP 36.4; O2SAT 96
[2025-02-12 08:28] VITALS: BP 137/91; PULSE 71; RESP 18; TEMP 36.9; O2SAT 96
[2025-02-12] MEDS: diphenhydrAMINE 50 mg/mL SDV 1mL 25 MG IVP (08:28)
[2025-02-12 08:34] LABS: Hematocrit 41.7 % (37-53); Hemoglobin 14.10 g/dL (11.27-16.99); Mean Corpuscular HGB Conc 33.8 g/dL (30-55); Mean Corpuscular Hemoglobin 29.6 pg (27-33); Mean Corpuscular Volume 87.4 fl (82-101); Nucleated Red Blood Cells % 0 %; Red Blood Count 4.77 10^6/uL (3.85-5.65); White Blood Count 8.64 10^3/uL (3.29-11.43)
[2025-02-12 08:56] LABS: Alanine Aminotransferase 25 U/L (0-41); Albumin Level 3.4 g/dL (3.5-5.2); Alkaline Phosphatase 68 U/L (40-130); Anion Gap 11.8 (5-19); Aspartate Amino Transferase 19 U/L (0-40); Blood Urea Nitrogen 20 mg/dL (8-23); Calcium 8.7 mg/dL (8.5-10.5); Carbon Dioxide 27 mmol/L (22-29); Chloride 101 mmol/L (98-107); Creatinine Clr Calc Pharmacy 72.0888; Globulin 5.1 g/dL (1.3-4.6); Glucose 139 mg/dL (65-115); Osmolality Calculated 287 mOsm/kg (285-295); Potassium 3.8 mmol/L (3.5-5.1); Sodium 136 mmol/L (136-145); Total Protein 8.5 g/dL (6.6-8.7)
[2025-02-12 09:11] LABS: Platelet Count 22 10^3/cmm (157-399); Slide Review Slide Review Perform
[2025-02-12 09:30] VITALS: BP 143/94; PULSE 76; RESP 18; TEMP 36.7; O2SAT 95
[2025-02-12 11:25] VITALS: BP 143/93; PULSE 74; RESP 18; TEMP 36.6; O2SAT 96
== END 2025-02-12 23:59 | disposition home or self-care (01) ==
PROVIDERS: Internal Medicine Medical Oncology; Nurse Practitioner Family; PCP Family Medicine; Visit Provider Nurse Practitioner
DX: D69.3 Immune thrombocytopenic purpura (principal); Z79.620 Long term (current) use of immunosuppressive biologic; Z79.899 Other long term (current) drug therapy
CPT/HCPCS: 36415; 36430; 80053; 83615; 85025; 85049; 86850; 86900; 96365; 96366; 96375; 99214; J1200; J1561; J7050; J9999; P9035

== ENCOUNTER 2025-02-18 07:21 | Emergency (ER) | payer MEDICARE, SELFPAY ==
[2025-02-18] VITALS (10 sets, daily range): BP systolic 120–168; BP diastolic 81–103; PULSE 56–94; RESP 17–18; TEMP 36.6–37.2; O2SAT 92–94; BMI 31.5
--- OUTSIDE RECORDS SUMMARY | 2025-02-18 07:26 | XMS_ITS | Patient Health Record ---
Author Organization [facility] Address [address] [place] [address] Care Team Providers Care Fisheries Biologist Name Role Phone Von Escalante MD Primary Care Provider JEREMI Malave Unavailable [phone] RamezChuck rosenbaum Unavailable [phone] Allergies Allergen (clinical drug ingredient) Drug/Non Drug Allergy documented on EMR Reaction Allergy Type Onset Date Status Dyazide Unknown Drug Allergy Active Reason For Referral No Information Medications Medication SIG (Take, Route, Frequency, Duration) Notes Start Date End Date Status Allopurinol 300 MG 1 tablet Orally Once a day Active Tamsulosin HCl 0.4 MG 1 capsule Orally O nce a day Not-Taking Finasteride 5 MG 1 tablet Orally Once a day Active Vitamin D Active traMADol HCl 50 MG 1 tablet as needed Orally Once a day Active Magnesium 250 MG 1 tablet with a meal Orally Once a day Active amLODIPine Besylate 5 MG 1 tablet Orally Once a day Active Diclofenac Active Social History Tobacco Use: Social History Observation Description Date Details (start date - stop date) Former Smoker NA - NA Tobacco Control (Standard) Question Answer Notes Tobacco use: Former smoker How long has it been since you last smoked? Grea ter than 10 years Problems Problem Type SNOMED Code ICD Code Onset Dates Problem Status W/U Status Risk Notes Problem Essential hypertension (80075218) Essential (primary) hypertension (I10) Active confirmed Problem Lower urinary tract symptoms due to benign prostatic hypertrophy (82777622428110) Benign localized hyperplasia of prostate with urinary obstruction (N40.1) Active confirmed Problem Benign prostatic hyperplasia (661522304) BPH (benign prostatic hyperplasia) (N40.0) Active confirmed Problem Urinary retention (570546560) Urinary retention (R33.9) Active confirmed Vital Signs Heart Rate 55 /min 04/27/2024 Height-cm 177.8 cm 04/27/2024 Blood pressure diastolic 78 mm Hg 04/27/2024 Weight-kg 102.06 kg 04/27/2024 Height 70 in 04/27/2024 Blood pressure systolic 130 mm Hg 04/27/2024 Weight 225 lbs 04/27/2024 BMI 32.28 kg/m2 04/27/2024 Procedures Procedure Date Ordered Date Performed Result Body Sit e Bladder Scan 04/27/2024 N/A Encounters Encounter Location Date Provider Diagnosis [facility], [place] [address] [place] [address] 04/27/2024 Chuck Franklin Benign localized hyperplasia of prostate with urinary obstruction N40.1 ; Acute urinary retention R33.8 and History of elevated PSA Z87.898 Assessments Encounter Date Diagnosis (ICD Code) Assessment Notes Treatment Notes Treatment Clinical Notes Section Notes 04/27/2024 Benign localized hyperplasia of prostate with urinary obstruction (ICD-10 - N40.1) Patient emptying well with improved LUTS while on finasteride and s/p PVP. I instructed for him to continue finasteride at this time. Refill as needed. At this time, he is currently not in urinary retention. Vitals are stable. No complaints of pain. Discussed given in the past of negative biopsy and age, based on guidelines that at this time, no need of continuing to monitor PSAs unless directed by PCP. Patient will safely return care in 1 year for continued monitoring with noninvasive urodynamics. For now, and through shared decision making we are in agreement with no further workup or intervention at this time with care plan, aside from what was mentioned. Vitals checked. History reviewed. Exam as mentioned above. Patient has no other voiced concerns or questions. Patient will call back or return care sooner if further issues/question s. All questions that were asked, were answered. Patient satisfied with plan. Please CC note to PCP. 04/27/2024 Acute urinary retention (ICD-10 - R33.8) Patient emptying well with improved LUTS while on finasteride and s/p PVP. I instructed for him to continue finasteride at this time. Refill as needed. At this time, he is currently not in urinary retention. Vitals are stable. No complaints of pain. Discussed given in the past of negative biopsy and age, based on guidelines that at this time, no need of continuing to monitor PSAs unless directed by PCP. Patient will safely return care in 1 year for continued monitoring with noninvasive urodynamics. For now, and through shared decision making we are in agreement with no further workup or intervention at this time with care plan, aside from what was mentioned. Vitals checked. History reviewed. Exam as mentioned above. Patient has no other voiced concerns or questions. Patient will call back or return care sooner if further issues/question s. All questions that were asked, were answered. Patient satisfied with plan. Please CC note to PCP. 04/27/2024 History of elevated PSA (ICD-10 - Z87.898) Patient emptying well with improved LUTS while on finasteride and s/p PVP. I instructed for him to continue finasteride at this time. Refill as needed. At this time, he is currently not in urinary retention. Vitals are stable. No complaints of pain. Discussed given in the past of negative biopsy and age, based on guidelines that at this time, no need of continuing to monitor PSAs unless directed by PCP. Patient will safely return care in 1 year for continued monitoring with noninvasive urodynamics. For now, and through shared decision making we are in agreement with no further workup or intervention at this time with care plan, aside from what was mentioned. Vitals checked. History reviewed. Exam as mentioned above. Patient has no other voiced concerns or questions. Patient will call back or return care sooner if further issues/question s. All questions that were asked, were answered. Patient satisfied with plan. Please CC note to PCP. Plan Of Treatment Pending Test Test Name Order Date Bladder Scan 04/27/2024 Basic Metabolic Panel 12/07/2023 CBC w/ Auto Diff 12/07/2023 Electrocardiogram, 12 Lead Tracing-[id number] 12/07/2023 Next Appt Details Provider Name:Chuck Franklin, 05/03/2025 10:40:00 AM, [address] [place], [address], Insurance Providers Payer Name Payer Address Payer Phone Subscriber Number Group Number Insured Name Patient Relationship to Insured Coverage Start Date Coverage End Date [employer] Medicare Supplement [address] [address] [place], [place] [id number] Tl Crandall Self - patient is the insured Medical (General) History Medical History History ICD Code BPH arthritis degenerative disc disease HTN Surgical History Surgery Date(Month/Year) appendectomy hernia x3 back micro PVP 12/13/2023
--- NOTE | 2025-02-18 07:42 | ED_ITS ---
HPI - GI Bleed 2 General: Chief complaint: GI Bleed Stated complaint: bloody stool Time Seen by Provider: 02/18/25 07:28 History of Present Illness: Chief complaint is rectal bleeding. Patient states that he feels completely fine. He states that this morning he had a bowel movement. He states when he wiped he had some bright red blood on the toilet paper. He states he thought he should probably check so he went back and checked again and got just a drop . He decided to come get checked out. No black stools. No vomiting. No lightheadedness or dizziness. No headache or chest pain or shortness of breath. No extremity pain or swelling. No new change in his bruising. 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 COMPLEX 09/07/22 02/18/25 cholecalciferol (vitamin D3) 25 25 mcg PO QAM 10/14/23 02/18/25 mcg (1,000 unit) capsule Previous Rx's ?Medication ?Instructions ?Recorded tramadol 50 mg tablet 50 mg PO QID PRN pain #60 ta bs 07/18/24 finasteride 5 mg tablet See Rx Instructions .Route 0 10/05/24 .COMPLEX #90 tabs diclofenac sodium 50 mg 50 mg PO BID low back pain # 90 tabs 12/07/24 tablet,delayed release allopurinol 300 mg tablet See Rx Instructions .Route 0 01/06/25 .COMPLEX #90 tabs amlodipine 5 mg tablet See Rx Instructions .Route 0 01/06/25 .COMPLEX #90 tabs triamcinolone acetonide 0.5 % 1 applic topical BID #15 grams 02/14/25 topical cream Allergies Allergy/AdvReac Type Severity Reaction Status Date / Time COVID-19 vaccine, Allergy RAsh Verified 02/13/25 14:15 Ad26.COV2.S ([facility] ED 2 [facility]: Medical History (Updated 02/18/25 @ 08:32 by Abram Woods MD) Opioid use agreement exists Encounter for long-term opiate analgesic use BPH NOS w ur obs/LUTS Elevated PSA History of colon polyps Gout HTN (hypertension), benign Chronic midline low back pain with bilateral sciatica Surgical History History of prostate surgery 12/13/2023 - Laser procedure on prostate History of incisional hernia repair 12/10/22 lap repair of recurrent incisional hernia w/mesh History of bone marrow biopsy Previous back surgery History of umbilical hernia repair 2018 - Dr Mendoza History of colonoscopy with polypectomy (01/09/20) H/O prostate biopsy H/O hemorrhoidectomy History of appendectomy Family History Mother , at age 89 No problems noted. Father , at age 59 Cirrhosis of liver Other Diabetes Denies family history of Anesthesia complication Bleeding disorder Social History Smoking and tobacco/nicotine status: never used tobacco/nicotine Alcohol intake: current Alcohol intake frequency: few times a month Alcohol type: beer Substance/Drug Use: never Marital status: Current occupational status: retired Physical Exam 2 Narrative: EXAM NARRATIVE: Alert oriented no acute distress. Pupils equal and reactive. Normal conjunctiva. Neck supple. Heart regular rhythm. Lung sounds are clear. Abdomen soft nontender. Digital rectal exam shows light yellow stool with no findings of blood. No visible hemorrhoids that are inflamed however what feels like internal hemorrhoids at 6:00. Extremities warm well-perfused. He has some bruises on his arms but no petechiae or evident bruising on his legs or other exposed areas. Speech is clear. No apparent weakness in his arms or legs. No leg edema. Course 2 Vital Signs: Vital signs: Vital Signs Temperature 98.3 F 02/18/25 12:41 Pulse Rate 63 02/18/25 13:27 Respiratory Rate 17 02/18/25 12:41 Blood Pressure 146/92 02/18/25 13:27 Pulse Oximetry 94 02/18/25 13:27 Oxygen Delivery Me thod Room Air 02/18/25 12:00 MDM - GI Bleed Medical Decision Making Patient presents with a complaint of some bright red blood per rectum when he wiped this morning after a bowel movement. He states it was a small amount on the toilet paper and then just a drop afterwards. No bleeding present moment. Serious diverticular bleed would be unlikely by history. Patient has a history of ITP however. His relates much of the history. She states that he was given platelets about a month ago although the patient states it was 2 weeks ago. He was given Ig about 2 weeks ago and when they checked him earlier this week they said it did not work. Patient denies any other complaints. Denies any fall or injury or trauma. No headache. No abdominal pain. No lightheadedness or dizziness. Plan to check CBC CMP PT PTT. Platelet count is 8. I consulted with Dr. Benjamin who knows the patient. He recommended transfusing 1 unit of platelets and then discharging home and will follow-up outpatient. I advised patient risk and benefit of transfusion and treatment plan and he agrees with plan after informed discussion. I advise close follow-up and signs of bleeding to watch and return for. I advised potential for serious GI bleeding and signs and symptoms to watch and return for. Patient white count is 5.92. Hemoglobin is 12.3. INR 0.97. Creatinine is 1.1. Lab Data 02/18/25 07:44 02/18/25 07:44 Laboratory Results WBC 5.92 10^3/uL (3.29-11.43) 02/18/25 07:44 RBC 4.17 10^6/uL (3.85-5.65) 02/18/25 07:44 Hgb 12.30 g/dL (11.27-16.99) 02/18/25 07:44 Hct 36.8 % (37-53) L 02/18/25 07:44 MCV 88.2 fl (82-101) 02/18/25 07:44 MCH 29.5 pg (27-33) 02/18/25 07:44 MCHC 33.4 g/dL (30-55) 02/18/25 07:44 RDW 13.6 % (12.1-15.1) 02/18/25 07:44 Plt Count 8 10^3/cmm (157-399) L* 02/18/25 07:44 MPV 11.0 fL (7.4-10.4) H 02/18/25 07:44 Neut % (Auto) 50.7 % 02/18/25 07:44 Lymph % (Auto) 32.9 % 02/18/25 07:44 Lamb % (Auto) 10.0 % 02/18/25 07:44 Eos % (Auto) 5.4 % 02/18/25 07:44 Baso % (Auto) 0.7 % 02/18/25 07:44 Neut # (Auto) 3.00 10^3/uL (1.8-7.7) 02/18/25 07:44 Lymph # (Auto) 2.0 10^3/uL (0.8-4.8) 02/18/25 07:44 Lamb # (Auto) 0.6 10^3/uL (0.2-0.9) 02/18/25 07:44 Eos # (Auto) 0.3 10^3/uL (0.0-0.8) 02/18/25 07:44 Baso # (Auto) 0.0 10^3/uL (0.0-0.1) 02/18/25 07:44 Nucleated RBC % (auto) 0 % 02/18/25 07:44 Nucleated RBCs # 0.0 /100WBC 02/18/25 07:44 PT 13.60 SECONDS (12.1-14.9) 02/18/25 07:44 INR 0.97 (0.8-1.2) 02/18/25 07:44 APTT 25.4 SECONDS (23.9-36.7) 02/18/25 07:44 Sodium 136 mmol/L (136-145) 02/18/25 07:44 Potassium 3.8 mmol/L (3.5-5.1) 02/18/25 07:44 Chloride 101 mmol/L (98-107) 02/18/25 07:44 Carbon Dioxide 26 mmol/L (22-29) 02/18/25 07:44 Anion Gap 12.8 (5-19) 02/18/25 07:44 BUN 15 mg/dL (8-23) 02/18/25 07:44 Creatinine 1.1 mg/dL (0.7-1.2) 02/18/25 07:44 GFR Calculation Not Reportable 02/18/25 07:44 Glucose 122 mg/dL (65-115) H 02/18/25 07:44 Calculated Osmolality 284 mOsm/kg (285-295) L 02/18/25 07:44 Calcium 8.5 mg/dL (8.5-10.5) 02/18/25 07:44 Total Bilirubin 0.8 mg/dL (0.15-1.2) 02/18/25 07:44 AST 22 U/L (0-40) 02/18/25 07:44 ALT 31 U/L (0-41) 02/18/25 07:44 Alkaline Phosphatase 59 U/L (40-130) 02/18/25 07:44 Total Protein 8.2 g/dL (6.6-8.7) 02/18/25 07:44 Albumin 3.2 g/dL (3.5-5.2) L 02/18/25 07:44 Globulin 5.0 g/dL (1.3-4.6) H 02/18/25 07:44 Blood Type A Negative 02/18/25 07:51 Rho(D) Type Rh negative 02/18/25 07:51 Antibody Screen Negative 02/18/25 07:51 All radiology interpretation(s) finalized by discharge Discharge Plan Discharge Patient Disposition: Home Clinical Impression: Thrombocytopenia, BRBPR (bright red blood per rectum) Condition: Stable Prescriptions: No Action triamcinolone acetonide 0.5 % cream 1 applic topical BID Qty: 15 6RF magnesium 250 mg tablet See Rx Instructions .ROUTE .COMPLEX Rx Instructions: Take one tab PO daily on Wed and cholecalciferol (vitamin D3) 25 mcg (1,000 unit) capsule 25 mcg PO QAM tramadol 50 mg tablet 50 mg PO QID PRN (Reason: pain) Qty: 60 5RF finasteride 5 mg tablet See Rx Instructions .ROUTE .COMPLEX Qty: 90 3RF Dose Instruction: TAKE 1 TABLET BY MOUTH EVERY DAY Rx Instructions: TAKE 1 TABLET BY MOUTH EVERY DAY diclofenac sodium 50 mg tablet,delayed release (DR/EC) 50 mg PO BID Qty: 90 3RF amlodipine 5 mg tablet See Rx Instructions .ROUTE .COMPLEX Qty: 90 3RF Dose Instruction: TAKE 1 TABLET BY MOUTH EVERY DAY Rx Instructions: TAKE 1 TABLET BY MOUTH EVERY DAY allopurinol 300 mg tablet See Rx Instructions .ROUTE .COMPLEX Qty: 90 3RF Dose Instruction: TAKE 1 TABLET BY MOUTH EVERY DAY Rx Instructions: TAKE 1 TABLET BY MOUTH EVERY DAY Discharge Orders: Discharge ED (Routine); Ordered 02/18/25 Ordered By: Abram Woods Referrals: Von Escalante MD [Primary Care Provider, Family Practice] Patient Instructions: Opioid Safety, Pain Management, Patient Portal & Julián Instructions Activity Restrictions/Additional Instructions: Follow-up with Dr. Benjamin this week. Recheck your platelets this week with your doctor. Return immediately if bleeding, abnormal bruising, abnormal rash, fever, abdominal pain, vomiting, black stools, weakness, any worse or concerns Print Language: Micronesian Coding Level of Care Code ED Sales And Service Specialist for Aliyah Brock
[2025-02-18 07:52] LABS: Hematocrit 36.8 % (37-53); Hemoglobin 12.30 g/dL (11.27-16.99); Mean Corpuscular HGB Conc 33.4 g/dL (30-55); Mean Corpuscular Hemoglobin 29.5 pg (27-33); Mean Corpuscular Volume 88.2 fl (82-101); Nucleated Red Blood Cells % 0 %; Positive C 1; Red Blood Count 4.17 10^6/uL (3.85-5.65); White Blood Count 5.92 10^3/uL (3.29-11.43)
[2025-02-18 07:55] LABS: Platelet Count 8 10^3/cmm (157-399)
[2025-02-18 08:07] LABS: INR 0.97 (0.8-1.2); Partial Thromboplastin Time 25.4 SECONDS (23.9-36.7); Prothrombin Time 13.60 SECONDS (12.1-14.9)
[2025-02-18 08:11] LABS: Alanine Aminotransferase 31 U/L (0-41); Albumin Level 3.2 g/dL (3.5-5.2); Alkaline Phosphatase 59 U/L (40-130); Anion Gap 12.8 (5-19); Aspartate Amino Transferase 22 U/L (0-40); Blood Urea Nitrogen 15 mg/dL (8-23); Calcium 8.5 mg/dL (8.5-10.5); Carbon Dioxide 26 mmol/L (22-29); Chloride 101 mmol/L (98-107); Creatinine Clr Calc Pharmacy 65.5353; Globulin 5.0 g/dL (1.3-4.6); Glucose 122 mg/dL (65-115); Osmolality Calculated 284 mOsm/kg (285-295); Potassium 3.8 mmol/L (3.5-5.1); Sodium 136 mmol/L (136-145); Total Protein 8.2 g/dL (6.6-8.7)
--- NOTE | 2025-02-18 08:12 | PC.NURSE ---
THIS NURSE WAS NOTIFIED BY LAB THAT IT WOULD BE AT LEAST 3 HOURS UNTIL THE ORDERED PLATELETS WOULD ARRIVE FOR THE PT TO RECEIVE. PROVIDER NOTIFIED.
== END 2025-02-18 13:25 | disposition home or self-care (01) ==
PROVIDERS: Emergency Provider Emergency Medicine; PCP Family Medicine
DX: D69.6 Thrombocytopenia, unspecified (principal); K62.5 Hemorrhage of anus and rectum; I10 Essential (primary) hypertension
CPT/HCPCS: 36415; 36430; 80053; 85025; 85610; 85730; 86850; 86900; 99284; P9035

== ENCOUNTER 2025-02-26 10:00 | Oncology outpatient (recurring) (ONCR) | payer MEDICARE, SELFPAY ==
[2025-02-13 14:09] LABS: Hematocrit 40.8 % (37-53); Hemoglobin 13.60 g/dL (11.27-16.99); Mean Corpuscular HGB Conc 33.3 g/dL (30-55); Mean Corpuscular Hemoglobin 29.4 pg (27-33); Mean Corpuscular Volume 88.1 fl (82-101); Nucleated Red Blood Cells % 0 %; Red Blood Count 4.63 10^6/uL (3.85-5.65); White Blood Count 8.24 10^3/uL (3.29-11.43)
[2025-02-13 14:46] LABS: Slide Review Slide Review Perform
[2025-02-13 14:47] LABS: Platelet Count 27 10^3/cmm (157-399)
[2025-02-19] MEDS: romiplostim 250 mcg SDV 200 MCG SUBCUT (11:56)
[2025-02-26 10:18] LABS: Hematocrit 37.4 % (37-53); Hemoglobin 12.60 g/dL (11.27-16.99); Mean Corpuscular HGB Conc 33.7 g/dL (30-55); Mean Corpuscular Hemoglobin 30.0 pg (27-33); Mean Corpuscular Volume 89.0 fl (82-101); Nucleated Red Blood Cells % 0 %; Platelet Count 202 10^3/cmm (157-399); Red Blood Count 4.20 10^6/uL (3.85-5.65); White Blood Count 7.65 10^3/uL (3.29-11.43)
[2025-02-26 10:33] LABS: Alanine Aminotransferase 16 U/L (0-41); Albumin Level 3.3 g/dL (3.5-5.2); Alkaline Phosphatase 77 U/L (40-130); Aspartate Amino Transferase 22 U/L (0-40); Blood Urea Nitrogen 16 mg/dL (8-23); Calcium 8.8 mg/dL (8.5-10.5); Carbon Dioxide 24 mmol/L (22-29); Chloride 103 mmol/L (98-107); Creatinine Clr Calc Pharmacy 59.9440; Globulin 4.6 g/dL (1.3-4.6); Glucose 147 mg/dL (65-115); Osmolality Calculated 290 mOsm/kg (285-295); Sodium 138 mmol/L (136-145); Total Protein 7.9 g/dL (6.6-8.7)
[2025-02-26 10:38] LABS: Anion Gap 15.1 (5-19); Potassium 4.1 mmol/L (3.5-5.1)
[2025-02-26] MEDS: ROMIPLOSTIM 125 MCG 100 MCG SUBCUT (11:43)
== END 2025-03-04 23:59 | disposition home or self-care (01) ==
PROVIDERS: Internal Medicine Medical Oncology; PCP Family Medicine; Visit Provider Nurse Practitioner
DX: D69.3 Immune thrombocytopenic purpura; R03.0 Elevated blood-pressure reading, without diagnosis of hypertension; Z79.899 Other long term (current) drug therapy; Z53.9 Procedure and treatment not carried out, unspecified reason
CPT/HCPCS: 36415; 80053; 85025; 96372; 96377; 99214; J2802

== ENCOUNTER 2025-04-02 09:00 | Oncology outpatient (recurring) (ONCR) | payer MEDICARE, SELFPAY ==
[2025-03-06 10:41] LABS: Hematocrit 39.6 % (37-53); Hemoglobin 13.20 g/dL (11.27-16.99); Mean Corpuscular HGB Conc 33.3 g/dL (30-55); Mean Corpuscular Hemoglobin 29.7 pg (27-33); Mean Corpuscular Volume 89.2 fl (82-101); Nucleated Red Blood Cells % 0 %; Platelet Count 274 10^3/cmm (157-399); Red Blood Count 4.44 10^6/uL (3.85-5.65); White Blood Count 8.94 10^3/uL (3.29-11.43)
[2025-03-06 10:55] LABS: Alanine Aminotransferase 18 U/L (0-41); Albumin Level 3.6 g/dL (3.5-5.2); Alkaline Phosphatase 86 U/L (40-130); Anion Gap 15.0 (5-19); Aspartate Amino Transferase 28 U/L (0-40); Blood Urea Nitrogen 18 mg/dL (8-23); Calcium 9.1 mg/dL (8.5-10.5); Carbon Dioxide 23 mmol/L (22-29); Chloride 102 mmol/L (98-107); Globulin 4.3 g/dL (1.3-4.6); Glucose 174 mg/dL (65-115); Osmolality Calculated 288 mOsm/kg (285-295); Potassium 4.0 mmol/L (3.5-5.1); Sodium 136 mmol/L (136-145); Total Protein 7.9 g/dL (6.6-8.7)
[2025-03-12 08:13] LABS: Hematocrit 39.7 % (37-53); Hemoglobin 12.80 g/dL (11.27-16.99); Mean Corpuscular HGB Conc 32.2 g/dL (30-55); Mean Corpuscular Hemoglobin 28.6 pg (27-33); Mean Corpuscular Volume 88.6 fl (82-101); Nucleated Red Blood Cells % 0 %; Platelet Count 101 10^3/cmm (157-399); Red Blood Count 4.48 10^6/uL (3.85-5.65); White Blood Count 7.20 10^3/uL (3.29-11.43)
[2025-03-12 08:31] LABS: Alanine Aminotransferase 16 U/L (0-41); Albumin Level 3.6 g/dL (3.5-5.2); Alkaline Phosphatase 81 U/L (40-130); Anion Gap 15.0 (5-19); Aspartate Amino Transferase 23 U/L (0-40); Blood Urea Nitrogen 12 mg/dL (8-23); Calcium 9.0 mg/dL (8.5-10.5); Carbon Dioxide 24 mmol/L (22-29); Chloride 104 mmol/L (98-107); Globulin 3.9 g/dL (1.3-4.6); Glucose 142 mg/dL (65-115); Osmolality Calculated 290 mOsm/kg (285-295); Potassium 4.0 mmol/L (3.5-5.1); Sodium 139 mmol/L (136-145); Total Protein 7.5 g/dL (6.6-8.7)
[2025-03-12] MEDS: ROMIPLOSTIM 125 MCG 100 MCG SUBCUT (09:41)
[2025-03-19 09:41] LABS: Hematocrit 39.4 % (37-53); Hemoglobin 12.90 g/dL (11.27-16.99); Mean Corpuscular HGB Conc 32.7 g/dL (30-55); Mean Corpuscular Hemoglobin 29.2 pg (27-33); Mean Corpuscular Volume 89.1 fl (82-101); Nucleated Red Blood Cells % 0 %; Platelet Count 71 10^3/cmm (157-399); Red Blood Count 4.42 10^6/uL (3.85-5.65); White Blood Count 9.20 10^3/uL (3.29-11.43)
[2025-03-19 09:55] LABS: Alanine Aminotransferase 13 U/L (0-41); Albumin Level 3.7 g/dL (3.5-5.2); Alkaline Phosphatase 82 U/L (40-130); Anion Gap 13.0 (5-19); Aspartate Amino Transferase 21 U/L (0-40); Blood Urea Nitrogen 14 mg/dL (8-23); Calcium 9.0 mg/dL (8.5-10.5); Carbon Dioxide 26 mmol/L (22-29); Chloride 105 mmol/L (98-107); Creatinine Clr Calc Pharmacy 65.3934; Globulin 3.7 g/dL (1.3-4.6); Glucose 120 mg/dL (65-115); Osmolality Calculated 292 mOsm/kg (285-295); Potassium 4.0 mmol/L (3.5-5.1); Sodium 140 mmol/L (136-145); Total Protein 7.4 g/dL (6.6-8.7)
[2025-03-19 10:00] LABS: Slide Review Slide Review Perform
[2025-03-19] MEDS: ROMIPLOSTIM 125 MCG 100 MCG SUBCUT (10:50)
[2025-03-26 09:42] LABS: Hematocrit 39.8 % (37-53); Hemoglobin 13.00 g/dL (11.27-16.99); Mean Corpuscular HGB Conc 32.7 g/dL (30-55); Mean Corpuscular Hemoglobin 29.5 pg (27-33); Mean Corpuscular Volume 90.5 fl (82-101); Nucleated Red Blood Cells % 0 %; Platelet Count 134 10^3/cmm (157-399); Red Blood Count 4.40 10^6/uL (3.85-5.65); White Blood Count 8.98 10^3/uL (3.29-11.43)
[2025-03-26 10:03] LABS: Alanine Aminotransferase 12 U/L (0-41); Albumin Level 3.7 g/dL (3.5-5.2); Alkaline Phosphatase 80 U/L (40-130); Anion Gap 14.8 (5-19); Aspartate Amino Transferase 17 U/L (0-40); Blood Urea Nitrogen 13 mg/dL (8-23); Calcium 8.9 mg/dL (8.5-10.5); Carbon Dioxide 24 mmol/L (22-29); Chloride 105 mmol/L (98-107); Creatinine Clr Calc Pharmacy 65.3934; Globulin 3.5 g/dL (1.3-4.6); Glucose 160 mg/dL (65-115); Osmolality Calculated 294 mOsm/kg (285-295); Potassium 3.8 mmol/L (3.5-5.1); Sodium 140 mmol/L (136-145); Total Protein 7.2 g/dL (6.6-8.7)
[2025-03-26] MEDS: ROMIPLOSTIM 125 MCG 100 MCG SUBCUT (10:46)
[2025-04-02 09:11] LABS: Hematocrit 41.5 % (37-53); Hemoglobin 13.50 g/dL (11.27-16.99); Mean Corpuscular HGB Conc 32.5 g/dL (30-55); Mean Corpuscular Hemoglobin 29.4 pg (27-33); Mean Corpuscular Volume 90.4 fl (82-101); Nucleated Red Blood Cells % 0 %; Platelet Count 201 10^3/cmm (157-399); Red Blood Count 4.59 10^6/uL (3.85-5.65); White Blood Count 8.94 10^3/uL (3.29-11.43)
[2025-04-02 09:29] LABS: Alanine Aminotransferase 13 U/L (0-41); Albumin Level 4.0 g/dL (3.5-5.2); Alkaline Phosphatase 82 U/L (40-130); Anion Gap 13.1 (5-19); Aspartate Amino Transferase 24 U/L (0-40); Blood Urea Nitrogen 13 mg/dL (8-23); Calcium 9.1 mg/dL (8.5-10.5); Carbon Dioxide 26 mmol/L (22-29); Chloride 105 mmol/L (98-107); Creatinine Clr Calc Pharmacy 65.3934; Globulin 3.5 g/dL (1.3-4.6); Glucose 105 mg/dL (65-115); Osmolality Calculated 290 mOsm/kg (285-295); Potassium 4.1 mmol/L (3.5-5.1); Sodium 140 mmol/L (136-145); Total Protein 7.5 g/dL (6.6-8.7)
[2025-04-02] MEDS: ROMIPLOSTIM 125 MCG 100 MCG SUBCUT (10:44)
== END 2025-04-03 23:59 | disposition home or self-care (01) ==
PROVIDERS: Internal Medicine Medical Oncology; PCP Family Medicine; Visit Provider Nurse Practitioner
DX: Z53.9 Procedure and treatment not carried out, unspecified reason; D69.3 Immune thrombocytopenic purpura; Z79.899 Other long term (current) drug therapy
CPT/HCPCS: 36415; 80053; 85025; 96372; 99214; J2802

== ENCOUNTER 2025-04-30 09:00 | Oncology outpatient (recurring) (ONCR) | payer MEDICARE, SELFPAY ==
[2025-04-09 09:28] LABS: Hematocrit 40.2 % (37-53); Hemoglobin 13.10 g/dL (11.27-16.99); Mean Corpuscular HGB Conc 32.6 g/dL (30-55); Mean Corpuscular Hemoglobin 29.3 pg (27-33); Mean Corpuscular Volume 89.9 fl (82-101); Nucleated Red Blood Cells % 0 %; Platelet Count 162 10^3/cmm (157-399); Red Blood Count 4.47 10^6/uL (3.85-5.65); White Blood Count 7.25 10^3/uL (3.29-11.43)
[2025-04-09] MEDS: ROMIPLOSTIM 125 MCG 100 MCG SUBCUT (10:33)
[2025-04-16 09:06] LABS: Hematocrit 41.8 % (37-53); Hemoglobin 13.70 g/dL (11.27-16.99); Mean Corpuscular HGB Conc 32.8 g/dL (30-55); Mean Corpuscular Hemoglobin 29.3 pg (27-33); Mean Corpuscular Volume 89.3 fl (82-101); Nucleated Red Blood Cells % 0 %; Platelet Count 127 10^3/cmm (157-399); Red Blood Count 4.68 10^6/uL (3.85-5.65); White Blood Count 7.96 10^3/uL (3.29-11.43)
[2025-04-16 09:24] LABS: Alanine Aminotransferase 19 U/L (0-41); Albumin Level 4.0 g/dL (3.5-5.2); Alkaline Phosphatase 75 U/L (40-130); Anion Gap 15.1 (5-19); Aspartate Amino Transferase 26 U/L (0-40); Blood Urea Nitrogen 16 mg/dL (8-23); Calcium 8.7 mg/dL (8.5-10.5); Carbon Dioxide 24 mmol/L (22-29); Chloride 105 mmol/L (98-107); Globulin 2.9 g/dL (1.3-4.6); Glucose 103 mg/dL (65-115); Osmolality Calculated 291 mOsm/kg (285-295); Potassium 4.1 mmol/L (3.5-5.1); Sodium 140 mmol/L (136-145); Total Protein 6.9 g/dL (6.6-8.7)
[2025-04-16] MEDS: ROMIPLOSTIM 125 MCG 100 MCG SUBCUT (10:30)
[2025-04-23 09:28] LABS: Hematocrit 43.0 % (37-53); Hemoglobin 14.00 g/dL (11.27-16.99); Mean Corpuscular HGB Conc 32.6 g/dL (30-55); Mean Corpuscular Hemoglobin 29.0 pg (27-33); Mean Corpuscular Volume 89.2 fl (82-101); Nucleated Red Blood Cells % 0 %; Platelet Count 59 10^3/cmm (157-399); Red Blood Count 4.82 10^6/uL (3.85-5.65); White Blood Count 7.64 10^3/uL (3.29-11.43)
[2025-04-23 09:43] LABS: Alanine Aminotransferase 14 U/L (0-41); Albumin Level 4.0 g/dL (3.5-5.2); Alkaline Phosphatase 97 U/L (40-130); Anion Gap 15.9 (5-19); Aspartate Amino Transferase 18 U/L (0-40); Blood Urea Nitrogen 16 mg/dL (8-23); Calcium 8.8 mg/dL (8.5-10.5); Carbon Dioxide 23 mmol/L (22-29); Chloride 101 mmol/L (98-107); Globulin 3.0 g/dL (1.3-4.6); Glucose 174 mg/dL (65-115); Osmolality Calculated 287 mOsm/kg (285-295); Potassium 3.9 mmol/L (3.5-5.1); Sodium 136 mmol/L (136-145); Total Protein 7.0 g/dL (6.6-8.7)
[2025-04-23] MEDS: ROMIPLOSTIM 125 MCG 100 MCG SUBCUT (10:46)
[2025-04-26 09:23] LABS: Hematocrit 41.9 % (37-53); Hemoglobin 14.00 g/dL (11.27-16.99); Mean Corpuscular HGB Conc 33.4 g/dL (30-55); Mean Corpuscular Hemoglobin 29.5 pg (27-33); Mean Corpuscular Volume 88.4 fl (82-101); Nucleated Red Blood Cells % 0 %; Platelet Count 55 10^3/cmm (157-399); Red Blood Count 4.74 10^6/uL (3.85-5.65); White Blood Count 8.40 10^3/uL (3.29-11.43)
[2025-04-26 10:27] LABS: Slide Review Slide Review Perform
[2025-04-30 09:20] LABS: Hematocrit 40.3 % (37-53); Hemoglobin 13.80 g/dL (11.27-16.99); Mean Corpuscular HGB Conc 34.2 g/dL (30-55); Mean Corpuscular Hemoglobin 30.3 pg (27-33); Mean Corpuscular Volume 88.6 fl (82-101); Nucleated Red Blood Cells % 0 %; Platelet Count 56 10^3/cmm (157-399); Red Blood Count 4.55 10^6/uL (3.85-5.65); White Blood Count 10.03 10^3/uL (3.29-11.43)
[2025-04-30 09:35] LABS: Alanine Aminotransferase 17 U/L (0-41); Albumin Level 3.9 g/dL (3.5-5.2); Alkaline Phosphatase 125 U/L (40-130); Anion Gap 16.8 (5-19); Aspartate Amino Transferase 20 U/L (0-40); Blood Urea Nitrogen 13 mg/dL (8-23); Calcium 9.0 mg/dL (8.5-10.5); Carbon Dioxide 22 mmol/L (22-29); Chloride 104 mmol/L (98-107); Creatinine Clr Calc Pharmacy 72.4015; Globulin 3.2 g/dL (1.3-4.6); Glucose 173 mg/dL (65-115); Osmolality Calculated 292 mOsm/kg (285-295); Potassium 3.8 mmol/L (3.5-5.1); Sodium 139 mmol/L (136-145); Total Protein 7.1 g/dL (6.6-8.7)
[2025-04-30] MEDS: ROMIPLOSTIM 125 MCG 150 MCG SUBCUT (10:20)
== END 2025-05-04 23:59 | disposition home or self-care (01) ==
PROVIDERS: PCP Family Medicine; Visit Provider Internal Medicine Medical Oncology
DX: D69.3 Immune thrombocytopenic purpura; R03.0 Elevated blood-pressure reading, without diagnosis of hypertension; Z79.899 Other long term (current) drug therapy; Z53.9 Procedure and treatment not carried out, unspecified reason
CPT/HCPCS: 36415; 80053; 85025; 96372; 96377; 99214; J2802

== ENCOUNTER → 2025-05-02 10:39 | Outpatient (BNVA) | payer MEDICARE, SELFPAY | PROVIDERS: PCP Family Medicine; Visit Provider Family Medicine | DX: Z00.00 Encounter for general adult medical examination without abnormal findings (principal); R73.03 Prediabetes | CPT/HCPCS: 83036 ==

== ENCOUNTER 2025-05-28 09:00 | Oncology outpatient (recurring) (ONCR) | payer MEDICARE, SELFPAY ==
[2025-05-07 09:19] LABS: Hematocrit 39.6 % (37-53); Hemoglobin 12.90 g/dL (11.27-16.99); Mean Corpuscular HGB Conc 32.6 g/dL (30-55); Mean Corpuscular Hemoglobin 29.0 pg (27-33); Mean Corpuscular Volume 89.0 fl (82-101); Nucleated Red Blood Cells % 0 %; Platelet Count 107 10^3/cmm (157-399); Red Blood Count 4.45 10^6/uL (3.85-5.65); White Blood Count 11.15 10^3/uL (3.29-11.43)
[2025-05-07 09:36] LABS: Alanine Aminotransferase 16 U/L (0-41); Albumin Level 3.7 g/dL (3.5-5.2); Alkaline Phosphatase 154 U/L (40-130); Anion Gap 13.7 (5-19); Aspartate Amino Transferase 16 U/L (0-40); Blood Urea Nitrogen 15 mg/dL (8-23); Calcium 8.7 mg/dL (8.5-10.5); Carbon Dioxide 23 mmol/L (22-29); Chloride 104 mmol/L (98-107); Globulin 3.6 g/dL (1.3-4.6); Glucose 183 mg/dL (65-115); Osmolality Calculated 290 mOsm/kg (285-295); Potassium 3.7 mmol/L (3.5-5.1); Sodium 137 mmol/L (136-145); Total Protein 7.3 g/dL (6.6-8.7)
[2025-05-07 10:13] LABS: Slide Review Slide Review Perform
[2025-05-07] MEDS: ROMIPLOSTIM 125 MCG 150 MCG SUBCUT (10:51)
[2025-05-14 09:09] LABS: Hematocrit 42.0 % (37-53); Hemoglobin 13.70 g/dL (11.27-16.99); Mean Corpuscular HGB Conc 32.6 g/dL (30-55); Mean Corpuscular Hemoglobin 28.8 pg (27-33); Mean Corpuscular Volume 88.4 fl (82-101); Nucleated Red Blood Cells % 0 %; Platelet Count 228 10^3/cmm (157-399); Red Blood Count 4.75 10^6/uL (3.85-5.65); White Blood Count 11.78 10^3/uL (3.29-11.43)
[2025-05-14 09:26] LABS: Alanine Aminotransferase 12 U/L (0-41); Albumin Level 4.0 g/dL (3.5-5.2); Alkaline Phosphatase 180 U/L (40-130); Anion Gap 14.0 (5-19); Aspartate Amino Transferase 19 U/L (0-40); Blood Urea Nitrogen 15 mg/dL (8-23); Calcium 8.8 mg/dL (8.5-10.5); Carbon Dioxide 22 mmol/L (22-29); Chloride 105 mmol/L (98-107); Globulin 3.8 g/dL (1.3-4.6); Glucose 175 mg/dL (65-115); Osmolality Calculated 289 mOsm/kg (285-295); Potassium 4.0 mmol/L (3.5-5.1); Sodium 137 mmol/L (136-145); Total Protein 7.8 g/dL (6.6-8.7)
[2025-05-14 09:36] LABS: Slide Review Slide Review Perform
[2025-05-14] MEDS: ROMIPLOSTIM 125 MCG 100 MCG SUBCUT (10:12)
[2025-05-21 09:27] LABS: Hematocrit 40.9 % (37-53); Hemoglobin 13.40 g/dL (11.27-16.99); Mean Corpuscular HGB Conc 32.8 g/dL (30-55); Mean Corpuscular Hemoglobin 29.1 pg (27-33); Mean Corpuscular Volume 88.7 fl (82-101); Nucleated Red Blood Cells % 0 %; Platelet Count 181 10^3/cmm (157-399); Red Blood Count 4.61 10^6/uL (3.85-5.65); White Blood Count 10.25 10^3/uL (3.29-11.43)
[2025-05-21 09:56] LABS: Alanine Aminotransferase 16 U/L (0-41); Albumin Level 3.8 g/dL (3.5-5.2); Alkaline Phosphatase 170 U/L (40-130); Aspartate Amino Transferase 20 U/L (0-40); Blood Urea Nitrogen 13 mg/dL (8-23); Calcium 8.4 mg/dL (8.5-10.5); Carbon Dioxide 24 mmol/L (22-29); Chloride 107 mmol/L (98-107); Globulin 3.6 g/dL (1.3-4.6); Glucose 137 mg/dL (65-115); Osmolality Calculated 290 mOsm/kg (285-295); Sodium 139 mmol/L (136-145); Total Protein 7.4 g/dL (6.6-8.7)
[2025-05-21 10:02] LABS: Anion Gap 12.3 (5-19); Potassium 4.3 mmol/L (3.5-5.1)
[2025-05-21] MEDS: ROMIPLOSTIM 125 MCG 100 MCG SUBCUT (10:31)
[2025-05-28 09:23] LABS: Hematocrit 41.5 % (37-53); Hemoglobin 13.50 g/dL (11.27-16.99); Mean Corpuscular HGB Conc 32.5 g/dL (30-55); Mean Corpuscular Hemoglobin 28.7 pg (27-33); Mean Corpuscular Volume 88.1 fl (82-101); Nucleated Red Blood Cells % 0 %; Platelet Count 105 10^3/cmm (157-399); Red Blood Count 4.71 10^6/uL (3.85-5.65); White Blood Count 10.20 10^3/uL (3.29-11.43)
[2025-05-28 09:36] LABS: Slide Review Slide Review Perform
[2025-05-28 09:38] LABS: Alanine Aminotransferase 15 U/L (0-41); Albumin Level 4.0 g/dL (3.5-5.2); Alkaline Phosphatase 177 U/L (40-130); Anion Gap 13.9 (5-19); Aspartate Amino Transferase 18 U/L (0-40); Blood Urea Nitrogen 15 mg/dL (8-23); Calcium 8.8 mg/dL (8.5-10.5); Carbon Dioxide 24 mmol/L (22-29); Chloride 106 mmol/L (98-107); Globulin 3.4 g/dL (1.3-4.6); Glucose 197 mg/dL (65-115); Osmolality Calculated 296 mOsm/kg (285-295); Potassium 3.9 mmol/L (3.5-5.1); Sodium 140 mmol/L (136-145); Total Protein 7.4 g/dL (6.6-8.7)
[2025-05-28] MEDS: ROMIPLOSTIM 125 MCG 150 MCG SUBCUT (10:37)
[2025-05-28 12:22] VITALS: BP 132/68; PULSE 68; RESP 16; O2SAT 96
== END 2025-06-03 23:59 | disposition home or self-care (01) ==
PROVIDERS: PCP Family Medicine; Visit Provider Internal Medicine Medical Oncology
DX: D69.3 Immune thrombocytopenic purpura; Z79.899 Other long term (current) drug therapy; Z53.9 Procedure and treatment not carried out, unspecified reason
CPT/HCPCS: 36415; 80053; 85025; 96372; J2802

== ENCOUNTER 2025-07-02 09:00 | Oncology outpatient (recurring) (ONCR) | payer MEDICARE, SELFPAY ==
[2025-06-04 09:09] LABS: Hematocrit 43.3 % (37-53); Hemoglobin 14.30 g/dL (11.27-16.99); Mean Corpuscular HGB Conc 33.0 g/dL (30-55); Mean Corpuscular Hemoglobin 29.2 pg (27-33); Mean Corpuscular Volume 88.4 fl (82-101); Nucleated Red Blood Cells % 0 %; Platelet Count 90 10^3/cmm (157-399); Red Blood Count 4.90 10^6/uL (3.85-5.65); White Blood Count 11.59 10^3/uL (3.29-11.43)
[2025-06-04 09:24] LABS: Slide Review Slide Review Perform
[2025-06-04 09:27] LABS: Alanine Aminotransferase 15 U/L (0-41); Albumin Level 3.8 g/dL (3.5-5.2); Alkaline Phosphatase 157 U/L (40-130); Anion Gap 14.0 (5-19); Aspartate Amino Transferase 17 U/L (0-40); Blood Urea Nitrogen 16 mg/dL (8-23); Calcium 8.7 mg/dL (8.5-10.5); Carbon Dioxide 22 mmol/L (22-29); Chloride 106 mmol/L (98-107); Globulin 3.7 g/dL (1.3-4.6); Glucose 185 mg/dL (65-115); Osmolality Calculated 292 mOsm/kg (285-295); Potassium 4.0 mmol/L (3.5-5.1); Sodium 138 mmol/L (136-145); Total Protein 7.5 g/dL (6.6-8.7)
[2025-06-04] MEDS: ROMIPLOSTIM 125 MCG 150 MCG SUBCUT (10:00)
[2025-06-11 09:10] LABS: Hematocrit 42.4 % (37-53); Hemoglobin 14.00 g/dL (11.27-16.99); Mean Corpuscular HGB Conc 33.0 g/dL (30-55); Mean Corpuscular Hemoglobin 29.1 pg (27-33); Mean Corpuscular Volume 88.1 fl (82-101); Nucleated Red Blood Cells % 0 %; Platelet Count 146 10^3/cmm (157-399); Red Blood Count 4.81 10^6/uL (3.85-5.65); White Blood Count 9.08 10^3/uL (3.29-11.43)
[2025-06-11 09:31] LABS: Alanine Aminotransferase 19 U/L (0-41); Albumin Level 4.0 g/dL (3.5-5.2); Alkaline Phosphatase 165 U/L (40-130); Anion Gap 11.9 (5-19); Aspartate Amino Transferase 23 U/L (0-40); Blood Urea Nitrogen 15 mg/dL (8-23); Calcium 8.7 mg/dL (8.5-10.5); Carbon Dioxide 25 mmol/L (22-29); Chloride 106 mmol/L (98-107); Globulin 3.4 g/dL (1.3-4.6); Glucose 198 mg/dL (65-115); Osmolality Calculated 294 mOsm/kg (285-295); Potassium 3.9 mmol/L (3.5-5.1); Sodium 139 mmol/L (136-145); Total Protein 7.4 g/dL (6.6-8.7)
[2025-06-11 09:40] LABS: Slide Review Slide Review Perform
[2025-06-11] MEDS: ROMIPLOSTIM 125 MCG 150 MCG SUBCUT (10:34)
[2025-06-11 10:42] VITALS: BP 132/74; PULSE 88; RESP 16; TEMP 36.6
[2025-06-18 09:14] LABS: Hematocrit 43.2 % (37-53); Hemoglobin 14.20 g/dL (11.27-16.99); Mean Corpuscular HGB Conc 32.9 g/dL (30-55); Mean Corpuscular Hemoglobin 29.0 pg (27-33); Mean Corpuscular Volume 88.3 fl (82-101); Nucleated Red Blood Cells % 0 %; Platelet Count 161 10^3/cmm (157-399); Red Blood Count 4.89 10^6/uL (3.85-5.65); White Blood Count 9.73 10^3/uL (3.29-11.43)
[2025-06-18 09:31] LABS: Slide Review Slide Review Perform
[2025-06-18 09:41] LABS: Alanine Aminotransferase 15 U/L (0-41); Albumin Level 3.8 g/dL (3.5-5.2); Alkaline Phosphatase 141 U/L (40-130); Aspartate Amino Transferase 18 U/L (0-40); Blood Urea Nitrogen 14 mg/dL (8-23); Calcium 8.8 mg/dL (8.5-10.5); Carbon Dioxide 22 mmol/L (22-29); Chloride 106 mmol/L (98-107); Globulin 3.3 g/dL (1.3-4.6); Glucose 184 mg/dL (65-115); Osmolality Calculated 297 mOsm/kg (285-295); Sodium 141 mmol/L (136-145); Total Protein 7.1 g/dL (6.6-8.7)
[2025-06-18 09:46] LABS: Anion Gap 17.2 (5-19); Potassium 4.2 mmol/L (3.5-5.1)
[2025-06-18] MEDS: ROMIPLOSTIM 125 MCG 150 MCG SUBCUT (11:18)
[2025-06-18 11:20] VITALS: BP 126/74; PULSE 84; O2SAT 96
[2025-06-25 09:37] LABS: Hematocrit 43.8 % (37-53); Hemoglobin 14.30 g/dL (11.27-16.99); Mean Corpuscular HGB Conc 32.6 g/dL (30-55); Mean Corpuscular Hemoglobin 28.2 pg (27-33); Mean Corpuscular Volume 86.4 fl (82-101); Nucleated Red Blood Cells % 0 %; Platelet Count 123 10^3/cmm (157-399); Red Blood Count 5.07 10^6/uL (3.85-5.65); White Blood Count 8.91 10^3/uL (3.29-11.43)
[2025-06-25 09:52] LABS: Slide Review Slide Review Perform
[2025-06-25 10:04] LABS: Alanine Aminotransferase 15 U/L (0-41); Albumin Level 4.0 g/dL (3.5-5.2); Alkaline Phosphatase 136 U/L (40-130); Anion Gap 13.1 (5-19); Aspartate Amino Transferase 19 U/L (0-40); Blood Urea Nitrogen 16 mg/dL (8-23); Calcium 9.0 mg/dL (8.5-10.5); Carbon Dioxide 25 mmol/L (22-29); Chloride 105 mmol/L (98-107); Globulin 3.2 g/dL (1.3-4.6); Glucose 184 mg/dL (65-115); Osmolality Calculated 294 mOsm/kg (285-295); Potassium 4.1 mmol/L (3.5-5.1); Sodium 139 mmol/L (136-145); Total Protein 7.2 g/dL (6.6-8.7)
[2025-06-25] MEDS: ROMIPLOSTIM 125 MCG 150 MCG SUBCUT (11:09)
[2025-07-02 09:27] LABS: Hematocrit 44.1 % (37-53); Hemoglobin 14.40 g/dL (11.27-16.99); Mean Corpuscular HGB Conc 32.7 g/dL (30-55); Mean Corpuscular Hemoglobin 28.7 pg (27-33); Mean Corpuscular Volume 87.8 fl (82-101); Nucleated Red Blood Cells % 0 %; Platelet Count 124 10^3/cmm (157-399); Red Blood Count 5.02 10^6/uL (3.85-5.65); White Blood Count 9.30 10^3/uL (3.29-11.43)
[2025-07-02 09:47] LABS: Alanine Aminotransferase 18 U/L (0-41); Albumin Level 3.8 g/dL (3.5-5.2); Alkaline Phosphatase 127 U/L (40-130); Anion Gap 15.2 (5-19); Aspartate Amino Transferase 20 U/L (0-40); Blood Urea Nitrogen 13 mg/dL (8-23); Calcium 8.9 mg/dL (8.5-10.5); Carbon Dioxide 24 mmol/L (22-29); Chloride 104 mmol/L (98-107); Globulin 3.3 g/dL (1.3-4.6); Glucose 183 mg/dL (65-115); Osmolality Calculated 293 mOsm/kg (285-295); Potassium 4.2 mmol/L (3.5-5.1); Sodium 139 mmol/L (136-145); Total Protein 7.1 g/dL (6.6-8.7)
[2025-07-02 09:54] LABS: Slide Review Slide Review Perform
[2025-07-02] MEDS: romiplostim 250 mcg SDV 150 MCG SUBCUT (11:09)
== END 2025-07-04 23:59 | disposition home or self-care (01) ==
PROVIDERS: PCP Family Medicine; Visit Provider Internal Medicine Medical Oncology
DX: D69.3 Immune thrombocytopenic purpura; Z79.899 Other long term (current) drug therapy; Z53.9 Procedure and treatment not carried out, unspecified reason
CPT/HCPCS: 36415; 80053; 85025; 96372; J2802